=== PATIENT | male | born 1970 | race American Indian/Alaskan Native ===

== ENCOUNTER 2019-12-07 19:17 | Emergency (ER) | payer MEDICAID ==
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
[2019-12-07 20:43] LABS: Bilirubin,Urine NEG (Negative); Blood,Urine NEG (Negative); Color,Urine Yellow (Yellow); Mucus,Urine FEW /HPF; RBC,Urine < 1.0 /HPF (0.0-6.0)
[2019-12-07 20:47] LABS: WBC,Urine < 1.0 /HPF (0.0-6.0)
[2019-12-07 20:51] LABS: Amphetamine Screen,Urine PRESUMPTIVE NEGATIVE; Cannabinoid Screen,Urine PRESUMPTIVE NEGATIVE; Cocaine Screen,Urine PRESUMPTIVE NEGATIVE; Methadone Screen,Urine PRESUMPTIVE NEGATIVE; Opiate Screen,Urine PRESUMPTIVE NEGATIVE
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
[2019-12-07 21:12] LABS: Benzodiazepines Screen,Urine PRESUMPTIVE NEGATIVE
[2019-12-07 21:14] LABS: Hemoglobin 13.3 gm/dl (11.8-15.2); Mean Corpuscular HGB Conc 32 % (32-34); Mean Corpuscular Volume 84 fl (84-94); Platelet Count 245 K/mm3 (140-440); Red Blood Count 4.87 M/mm3 (3.65-5.03); Red Cell Distribution Width 16.3 % (13.2-15.2)
[2019-12-07 21:36] LABS: Alanine Aminotransferase 18 units/L (7-56); Albumin 4.1 g/dL (3.9-5); BUN/Creatinine Ratio 18; Blood Urea Nitrogen 18 mg/dL (9-20); Calcium 9.4 mg/dL (8.4-10.2); Hemolysis Index 16
[2019-12-07 22:14] LABS: RBC Morphology Normal; Total Cells Counted 100
[2019-12-07] MEDS ORDERED: BACITRACIN/POLYMYXIN B OINT 28.35 GM TP ONE (22:55)
[2019-12-07] MEDS ORDERED: ACETAMINOPHEN 325 MG TAB PO ONE (22:56)
[2019-12-07] MEDS: BACITRACIN ZINC OINT 28.4 GM TP ONE (23:37)
[2019-12-08 15:25] LABS: Basophils # (Auto) 0.1 K/mm3 (0.0-0.1); Basophils % (Auto) 0.6 % (0.0-1.8); Eosinophils # (Auto) 0.1 K/mm3 (0.0-0.4); Hemoglobin 12.7 gm/dl (11.8-15.2); Lymphocytes % (Auto) 19.8 % (13.4-35.0); Mean Corpuscular HGB Conc 33 % (32-34); Mean Corpuscular Volume 84 fl (84-94); Monocytes # (Auto) 1.2 K/mm3 (0.0-0.8); Monocytes % (Auto) 11.5 % (0.0-7.3); Platelet Count 210 K/mm3 (140-440); Red Blood Count 4.51 M/mm3 (3.65-5.03); Red Cell Distribution Width 16.2 % (13.2-15.2)
--- NOTE | 2019-12-09 12:54 | Consultation ---
History of Present Illness - Reason for Consult Consult date: 12/09/19 Reason for consult: Psych eval - Chief Complaint Chief complaint: Hearing voices - History of Present Psychiatric Illness The patient is a 49yo single unemployed male with history of Paranoid Schizophrenia on Prolixin D, Depakote and Cogentin. He missed his shot and now presents with auditory hallucinations - voices threatening to kill him which are distressing to patient over the last 6 days. He is willing to resume his medications but does not feel safe being discharged home as he endorses paranoia. Patient eats and sleeps well. Patient denies panic attacks, recurrent nightmares or flashbacks. Patient denies symptoms suggestive of OCD or PTSD. He completely denies suicidal or homicidal thoughts. PAST PSYCHIATRIC HISTORY: Diagnoses: Paranoid Schizophrenia Suicide attempts or Self-harm behavior: Patient denies Prior psychiatric hospitalizations: Yes Substance Abuse history: Patient denies Outpatient treatment: Yes Family Psychiatric History None reported or documented SOCIAL HISTORY Marital Status: Single Living Arrangements: Homeless Employment Status: unemployed Access to guns/weapons: Patient denies Education: Grade 11 History of Abuse: Patient denies Legal History: Patient denies ROS: Constitutional: Negative for weight loss ENT: Negative for stridor Respiratory: Negative for cough or hemoptysis All other systems reviewed and are negative MENTAL STATUS General Appearance and Behavior: age appropriate, good eye contact, cooperative with questioning and polite Cooperation: Cooperative Psychomotor Behavior: within normal limits Mood: OK Affect and affective range: Congruent with stated mood Thought Process: Fluent/Logical and Goal-directed Thought Content: AH and paranoia Speech: Normal volume and Regular rate and rhythm Intellectual Functioning Average Suicidal Ideation: Denies SI Homicidal Ideation: Denies HI Impulse Control: intact Insight and Judgment: normal insight and judgment Memory: Normal Attention: Normal Orientation: alert and oriented RECOMMENDATIONS MEDICATIONS: Will re-start Prolixin D, Depakote and Cogentin. Risks, benefits and alternatives of medications discussed with the patient, questions answered and consent obtained from patient. PSYCHOTHERAPY: Supportive psychotherapy provided MEDICAL: Per primary team MAT REPAIRER: Yes DISPOSITION: Acute inpatient psychiatric hospitalization when medically stable LEGAL STATUS: 1013 FOLLOW-UP: Will follow I have reviewed this treatment plan, including potential risks and benefits of medications, with the patient and/or family members and relevant hospital providers. Please contact with any questions and/or concerns. Medications and Allergies Allergies Allergy/AdvReac Type Severity Reaction Status Date / Time No Known Allergies Allergy Unverified 12/07/19 20:18 Mental Status Exam - Vital signs Last Vital Signs Temp 98.3 F 12/09/19 08:13 Pulse 86 12/09/19 08:13 Resp 18 12/09/19 08:13 BP 147/97 12/09/19 08:13 Pulse Ox 98 12/09/19 08:13 Results Result Diagrams: 12/08/19 15:05 12/07/19 20:41 Abnormal lab results 12/08/19 Range/Units 15:05 RDW 16.2 H (13.2-15.2) % [place] % (Auto) 11.5 H (0.0-7.3) % [place] # 1.2 H (0.0-0.8) K/mm3 All other labs normal. Assessment and Plan - Psychiatric problem (1) Schizophrenia Current Visit: Yes Status: Acute Qualifiers: Schizophrenia type: paranoid schizophrenia Qualified Code(s): F20.0 - Paranoid schizophrenia
[2019-12-09] MEDS: DIVALPROEX DR 250 MG TAB PO SCH ×2 (15:09→21:44)
[2019-12-09] MEDS: BENZTROPINE 0.5 MG TAB PO SCH ×2 (15:09→21:43)
[2019-12-09] MEDS: BACITRACIN ZINC OINT 28.4 GM TP ONE (23:34)
[2019-12-10 07:50] VITALS: BP 155/105
[2019-12-10] MEDS: BENZTROPINE 0.5 MG TAB PO SCH (10:19)
[2019-12-10] MEDS: DIVALPROEX DR 250 MG TAB PO SCH (10:20)
--- NOTE | 2019-12-10 12:24 | Progress Note ---
Subjective - Reason for Consult Consult date: 12/10/19 Reason for consult: Psych follow up - Chief Complaint Chief complaint: No complaints. SUBJECTIVE Patient reviewed this morning. He has no complaints. He feels good and completely denies SI/HI/AVH/Paranoia. He is compliant with his medications and denies side effects. He feels safe being discharged home. He plans to go get his monthly injection as soon as possible and promises to take his medications as prescribed. ROS: Constitutional: Negative for weight loss ENT: Negative for stridor Respiratory: Negative for cough or hemoptysis All other systems reviewed and are negative MENTAL STATUS General Appearance and Behavior: age appropriate, good eye contact, cooperative with questioning and polite Cooperation: Cooperative Psychomotor Behavior: within normal limits Mood: OK Affect and affective range: Congruent with stated mood Thought Process: Fluent/Logical and Goal-directed Thought Content: Normal Speech: Normal volume and Regular rate and rhythm Intellectual Functioning Average Suicidal Ideation: Denies SI Homicidal Ideation: Denies HI Impulse Control: intact Insight and Judgment: normal insight and judgment Memory: Normal Attention: Normal Orientation: alert and oriented DIAGNOSIS Paranoid Schizophrenia. RECOMMENDATIONS MEDICATIONS: Will discharge home on oral Prolixin D, Depakote and Cogentin. Risks, benefits and alternatives of medications discussed with the patient, qu estions answered and consent obtained from patient. PSYCHOTHERAPY: Supportive psychotherapy provided MEDICAL: Per primary teamSAFETY SITTER: May discontinue DISPOSITION: Per primary team. No indication for acute inpatient psychiatric hospitalization at this time. LEGAL STATUS: 1013 rescinded FOLLOW-UP: Will sign off The patient agreed on the treatment plan, understood the risk, benefit, alternative treatment, potential consequence of no treatment, and gave informed consent. Mental Status Exam - Vital signs Last Vital Signs Temp 97.6 F 12/10/19 07:49 Pulse 89 12/10/19 07:49 Resp 18 12/10/19 10:28 BP 155/105 12/10/19 07:49 Pulse Ox 98 12/10/19 10:28 Assessment and Plan - Patient Problems (1) Schizophrenia Current Visit: Yes Status: Acute Qualifiers: Schizophrenia type: paranoid schizophrenia Qualified Code(s): F20.0 - Paranoid schizophrenia
== END 2019-12-10 13:02 ==
LOC: ED 19:17
DX: F20.9 Schizophrenia, unspecified (principal)
CPT/HCPCS: 36415; 80053; 80164; 80307; 80320; 81001; 85007; 85025; G0480

== ENCOUNTER 2021-04-14 15:31 | Inpatient (IN) | payer MEDICAID ==
--- NOTE | 2021-04-15 09:09 | History and Physical Report ---
GP History & Physical - History of Present Illness Date of admission: 04/14/21 Date of Examination: 04/15/21 Reason for Admission: Danger to self Chief Complaint: suicidal ideation History of Present Illness: The patient was seen in the ED. Khris Moody is a 50 year old male with a history of schizophrenia and bipolar who presents to the ED with auditory hallucinations. In my interview with the patient, he is seen responding to internal stimuli. He endorses auditory and visual hallucinations stating " voices saying they are going to kill me and I see people running around." The patient admits having suicidal ideation with no plan. The patient was seen today in the unit eating breakfast, he reports doing well. The patient denies any current suicidal ideation and denies hallucinations. Diagnoses: Schizophrenia and Bipolar Suicide attempts or Self-harm behavior: Yes Prior psychiatric hospitalizations: Multiple Substance Abuse history: Denies Previous psychiatric medications tried: unknown Outpatient treatment: unknown PAST MEDICAL HISTORY: unknown Family Psychiatric History: None reported or documented SOCIAL HISTORY Marital Status: Single Living Arrangements: Homeless Employment Status: unemployed Access to guns/weapons: Denies Education: 11th grade History of Abuse: none reported Legal History: none reported REVIEW OF SYSTEMS Constitutional: Negative for weight loss ENT: Negative for stridor Respiratory: Negative for cough or hemoptysis All other systems reviewed and are negative MENTAL STATUS EXAMINATION General Appearance and Behavior: Age appropriate, good hygiene, wearing appropriate clothes, sleeping, cooperative Cooperation: Participating/engaged Psychomotor Behavior: Tremors Mood: "good" Affect and affective range: congruent with mood Thought Process: Impoverished Thought Content:Not SI Speech: Normal volume, Regular rate and rhythm, Suicidal Ideation: Denies Homicidal Ideation: Denies Hallucinations: Denies Delusions: None elicited Impulse Control: impaired Insight and Judgment: poor insight and judgment, Memory: abnormal Attention: Normal Orientation: Alert, oriented Assessment and Plan (1)Schizophrenia F20.9 Current Visit: Yes Status: Acute Treatment Plan Patient admitted for inpatient psychiatric evaluation, medication adjustment and close monitoring The patient's behavior, mood, sleep and appetite will be closely monitored. Patient enrolled in individual and group therapeutic sessions and encouraged to attend. Patient provided with a safe and structured environment. Patient's physical health needs will be addressed by the Hospitalist. Hospitalist Consulted Labs including CBC, CMP, Lipid profile and Hemoglobin A1C levels ordered for baseline reference Social Assessment will be completed and the Desizing Machine Operator Head End will work with patient and family to ensure a suitable and safe disposition Medication adjustment will be made as clinically indicated Continue Risperidone 1mg po BID. Usual Wellness Adventism/Preservation: - Start Trazodone 50 mg po QHS & 50 mg po QHS PRN between 10 PM & 2 AM for insomnia - Start Melatonin 5 mg po QHS to promote circadian rhythm The patient agreed on the treatment plan, understood the risk, benefit, alternative treatment, potential consequence of no treatment, and gave informed consent. Estimated days: 7 Post hospital care: primary care provider, psychiatric provider Case staffed with Dr. Smith Medications and Allergies Legal Status: Voluntary Medications and Allergies Allergies Allergy/AdvReac Type Severity Reaction Status Date / Time No Known Allergies Allergy Verified 04/14/21 02:26 Home Medications Medication Instructions Recorded Confirmed Last Taken Type Benztropine [Cogentin] 0.5 mg PO BID #30 tablet 12/10/19 04/15/[address] [Depakote Dr] 500 mg PO BID #60 tablet 12/10/19 04/15/21 Unknown Rx fluPHENAZine HCl [Prolixin] 5 mg PO BID #30 tablet 12/10/19 04/15/21 Unknown Rx risperiDONE [RisperDAL] 1 mg PO BID 04/15/21 04/15/21 Unknown History Results - Results Labs/Vitals: Laboratory Last Values POC Glucose 99 mg/dL (70-105) 04/15/21 01:38 Last Vital Signs Temp 98.4 F 04/15/21 02:05 Pulse 72 04/15/21 02:05 Resp 18 04/15/21 02:05 BP 117/81 04/15/21 02:05 Pulse Ox 100 04/15/21 02:05 Physical Examination - Constitutional Vitals: Vital Signs Temp Pulse Resp BP Pulse Ox 98.4 F 72 18 117/81 100 04/15/21 02:05 04/15/21 02:05 04/15/21 02:05 04/15/21 02:05 04/15/21 02:05 Temperature -Last 24 Hours Temperature 98.4 F Temperature 98.4 F Mental Status Exam - Vital signs Last Vital Signs Temp 98.4 F 04/15/21 02:05 Pulse 72 04/15/21 02:05 Resp 18 04/15/21 02:05 BP 117/81 04/15/21 02:05 Pulse Ox 100 04/15/21 02:05 Physician Certification - Certification Statement Physician Certification Statement: This is an acknowledgement statement that KHRIS MOODY is a 50 year old M who requires inpatient psychiatric admission for treatment which could reasonably be expected to improve the patient's condition for Estimated period of time patient will need to remain in the hospital: [ ] Plan for post-hospital care: [ ]
[2021-04-15] MEDS: DIVALPROEX DR 250 MG TAB PO SCH ×2 (09:39→21:14)
[2021-04-15] MEDS: risperiDONE 1 MG TAB PO SCH ×2 (09:40→21:14)
[2021-04-15] MEDS: BENZTROPINE 0.5 MG TAB PO SCH ×2 (09:40→21:14)
--- NOTE | 2021-04-15 15:15 | Consultation ---
History of Present Illness - Reason for Consult Consult date: 04/15/21 Medical management Requesting physician: YANET CARMEN - History of Present Illness 50-year-old male with past medical history significant for schizophrenia, bipolar disorder was admitted by [facility] for auditory hallucinations and suicidal thoughts. Been consulted for medical management. Patient does not have fever, chest pain, shortness of breath. Patient said he has history of hypertension but currently controlled. REVIEW OF SYSTEMS: GENERAL: no weight change, no fatigue, no fever HEAD: no head ache EYES: no blurry vision, no acute visual loss EARS: no hearing loss, no discharge, no earache NOSE: no stuffiness, no sneezing, no discharge MOUTH, THROAT AND NECK: no bleeding gums, no sore throat, no swollen neck CARDIAC: no palpitations, no dyspnea on exertion, no orthopnea, no PND, no edema, no chest pain RESPIRATORY: no shortness of breath, no wheeze, no cough, no sputum, no hemoptysis, no asthma GI: no decreased appetite, no nausea, no vomiting, no dysphagia, no diarrhea, no constipation, no abdominal pain URINARY: No urgency, hematuria, dysuria or frequency. MUSCULOSKELETAL: no muscle weakness, no pain, no joint stiffness NEUROLOGIC: no loss of sensation/numbness, no tingling, no tremors, no weakness/paralysis HEMATOLOGIC: no anemia, no easy bruising SKIN: no rashes ENDOCRINE: no heat/cold intolerance, no polyuria, no polydipsia, no thyroid problems, no diabetes Past History Past Medical History: hypertension Past Surgical History: Other (Arm surgery) Social history: full code. denies: smoking, alcohol abuse, prescription drug abuse, IV drug use Family history: no significant family history Medications and Allergies Allergies Allergy/AdvReac Type Severity Reaction Status Date / Time No Known Allergies Allergy Verified 04/14/21 02:26 Home Medications Medication Instructions Recorded Confirmed Last Taken Type Benztropine [Cogentin] 0.5 mg PO BID #30 tablet 12/10/19 04/15/[address] [Depakote Dr] 500 mg PO BID #60 tablet 12/10/19 04/15/21 Unknown Rx fluPHENAZine HCl [Prolixin] 5 mg PO BID #30 tablet 12/10/19 04/15/21 Unknown Rx risperiDONE [RisperDAL] 1 mg PO BID 04/15/21 04/15/21 Unknown History Active Meds: Active Medications Benztropine Mesylate (Benztropine 0.5 Mg Tab) 0.5 mg PO BID [facility] Last Admin: 04/15/21 09:40 Dose: 0.5 mg Documented by: Divalproex Sodium (Divalproex Dr 250 Mg Tab) 500 mg PO BID [facility] Last Admin: 04/15/21 09:39 Dose: 500 mg Documented by: Risperidone (Risperidone 1 Mg Tab) 1 mg PO BID [facility] Last Admin: 04/15/21 09:40 Dose: 1 mg Documented by: Trazodone HCl (Trazodone 50 Mg Tab) 50 mg PO QHS [facility] Exam - Physical Exam Narrative exam: Not in cardiopulmonary distress. The patient appeared well nourished and normally developed. Vital signs as documented. Head exam is unremarkable. No scleral icterus . Neck is without jugular venous distension, thyromegaly, or carotid bruits. Lungs are clear to auscultation. Cardiac exam reveals regular rate and Rhythm. Abdominal exam reveals normal bowel sounds, nontender, no organomegaly. Extremities are nonedematous and both femoral and pedal pulses are normal. [employer] ARCHITECT: Alert and oriented 3. No focal weakness. - Constitutional Vitals: Temp Pulse Resp BP Pulse Ox 98.0 F 86 16 113/90 98 04/15/21 07:51 04/15/21 07:51 04/15/21 07:51 04/15/21 07:51 04/15/21 07:51 Assessment and Plan Schizophrenia, bipolar disorder, suicidal ideation -Management is per [facility] psych Hypertension -Patient said he has history of hypertension -Currently blood pressure is controlled without any medication -No medication is needed unless his blood pressure is going up Thank you for the consult. Please do not hesitate to call me if you have any questions.
[2021-04-15] MEDS: traZODone 50 MG TAB PO SCH (21:14)
--- NOTE | 2021-04-16 08:03 | Progress Note ---
Subjective Date of service: 04/16/21 Subjective Comment: 04/16/2021: The patient was seen in the activity room eating breakfast, he reports mood as " alright." He states sleep and appetite as good. he denies any current suicidal /homicidal thoughts and denies hallucinations. Per nurse, the patient had a quiet night. No complain. No changes made today. REVIEW OF SYSTEMS Constitutional: Negative for weight loss ENT: Negative for stridor Respiratory: Negative for cough or hemoptysis All other systems reviewed and are negative MENTAL STATUS EXAMINATION General Appearance and Behavior: Age appropriate, good hygiene, wearing appropriate clothes, sleeping, cooperative Cooperation: Participating/engaged Psychomotor Behavior: Tremors Mood: "good" Affect and affective range: congruent with mood Thought Process: Impoverished Thought Content:Not SI Speech: Normal volume, Regular rate and rhythm, Suicidal Ideation: Denies Homicidal Ideation: Denies Hallucinations: Denies Delusions: None elicited Impulse Control: impaired Insight and Judgment: poor insight and judgment, Memory: abnormal Attention: Normal Orientation: Alert, oriented Assessment and Plan (1)Schizophrenia F20.9 Current Visit: Yes Status: Acute Treatment Plan Patient admitted for inpatient psychiatric evaluation, medication adjustment and close monitoring The patient's behavior, mood, sleep and appetite will be closely monitored. Patient enrolled in individual and group therapeutic sessions and encouraged to attend. Patient provided with a safe and structured environment. Patient's physical health needs will be addressed by the Hospitalist. Hospitalist Consulted Labs including CBC, CMP, Lipid profile and Hemoglobin A1C levels ordered for baseline reference Social Assessment will be completed and the Police Clerk will work with patient and family to ensure a suitable and safe disposition Medication adjustment will be made as clinically indicated Continue Risperidone 1mg po BID. Usual Wellness Buddhism/Preservation: - Start Trazodone 50 mg po QHS & 50 mg po QHS PRN between 10 PM & 2 AM for insomnia - Start Melatonin 5 mg po QHS to promote circadian rhythm The patient agreed on the treatment plan, understood the risk, benefit, alternative treatment, potential consequence of no treatment, and gave informed consent. Estimated days: 7 Post hospital care: primary care provider, psychiatric provider Case staffed with Dr. Smith Medications and Allergies Legal Status: Voluntary Medications and Allergies Medications and Allergies Allergies Allergy/AdvReac Type Severity Reaction Status Date / Time No Known Allergies Allergy Verified 04/14/21 02:26 Home Medications Medication Instructions Recorded Confirmed Last Taken Type Benztropine [Cogentin] 0.5 mg PO BID #30 tablet 12/10/19 04/15/[address] [Depakote Dr] 500 mg PO BID #60 tablet 12/10/19 04/15/21 Unknown Rx fluPHENAZine HCl [Prolixin] 5 mg PO BID #30 tablet 12/10/19 04/15/21 Unknown Rx risperiDONE [RisperDAL] 1 mg PO BID 04/15/21 04/15/21 Unknown History Active Meds: Active Medications Benztropine Mesylate (Benztropine 0.5 Mg Tab) 0.5 mg PO BID [facility] Last Admin: 04/15/21 21:14 Dose: 0.5 mg Documented by: Divalproex Sodium (Divalproex Dr 250 Mg Tab) 500 mg PO BID [facility] Last Admin: 04/15/21 21:14 Dose: 500 mg Documented by: Risperidone (Risperidone 1 Mg Tab) 1 mg PO BID [facility] Last Admin: 04/15/21 21:14 Dose: 1 mg Documented by: Trazodone HCl (Trazodone 50 Mg Tab) 50 mg PO QHS [facility] Last Admin: 04/15/21 21:14 Dose: 50 mg Documented by: Results - Results Labs/Vitals: Laboratory Last Values POC Glucose 99 mg/dL (70-105) 04/15/21 01:38 Last Vital Signs Temp 99.0 F 04/15/21 22:00 Pulse 77 04/15/21 22:00 Resp 18 04/15/21 22:00 BP 123/68 04/15/21 22:00 Pulse Ox 96 04/15/21 22:00
[2021-04-16] MEDS: BENZTROPINE 0.5 MG TAB PO SCH ×2 (09:08→21:17)
[2021-04-16] MEDS: DIVALPROEX DR 250 MG TAB PO SCH ×2 (09:08→21:17)
[2021-04-16] MEDS: risperiDONE 1 MG TAB PO SCH ×2 (09:08→21:18)
[2021-04-16 10:56] LABS: Basophils % (Auto) 0.4 % (0.0-1.8); Eosinophils # (Auto) 0.1 K/mm3 (0.0-0.4); Eosinophils % (Auto) 1.8 % (0.0-4.3); Hematocrit 37.3 % (35.5-45.6); Hemoglobin 12.4 gm/dl (11.8-15.2); Lymphocytes # (Auto) 1.6 K/mm3 (1.2-5.4); Lymphocytes % (Auto) 20.4 % (13.4-35.0); Mean Corpuscular HGB Conc 33 % (32-34); Mean Corpuscular Volume 88 fl (84-94); Monocytes # (Auto) 0.6 K/mm3 (0.0-0.8); Monocytes % (Auto) 7.5 % (0.0-7.3); Platelet Count 218 K/mm3 (140-440); Red Blood Count 4.22 M/mm3 (3.65-5.03)
[2021-04-16 10:59] LABS: Alanine Aminotransferase 7 units/L (7-56); Albumin 3.8 g/dL (3.9-5); BUN/Creatinine Ratio 13; Blood Urea Nitrogen 10 mg/dL (9-20); Calcium 9.4 mg/dL (8.4-10.2); Chol/HDL Ratio 3.32 %; HDL Cholesterol 40 mg/dL (40-59); Hemolysis Index 8; LDL Cholesterol,Direct 96 mg/dL (50-130)
--- NOTE | 2021-04-16 11:03 | XRay Report ---
CHEST 1 VIEW 04/16/2021 9:46 AM INDICATION / CLINICAL INFORMATION: tb check for Placement. COMPARISON: None available. FINDINGS: SUPPORT DEVICES: None. HEART / MEDIASTINUM: No significant abnormality. LUNGS / PLEURA: No significant pulmonary or pleural abnormality. No pneumothorax. ADDITIONAL FINDINGS: No significant additional findings. IMPRESSION: 1. No acute findings. Signer Name: Christopher Morales MD Signed: 04/16/2021 10:58 AM Workstation Name: [id number]
[2021-04-16 16:33] LABS: Hepatitis B Surface Antigen Non-Reactive (Negative); Hepatitis C Virus Antibody Non-Reactive (NonReactive)
[2021-04-16] MEDS: traZODone 50 MG TAB PO SCH (21:18)
--- NOTE | 2021-04-17 08:55 | Progress Note ---
Subjective Date of service: 04/17/21 Subjective Comment: 04/16/2021: The patient was seen in the activity room eating breakfast, he reports mood as " alright." He states sleep and appetite as good. he denies any current suicidal /homicidal thoughts and denies hallucinations. Per nurse, the patient had a quiet night. No complain. No changes made today. 04/17/2021: The patient seen in the activity room awaiting breakfast. The patient presents with inappropriate laughter and responding to internal stimuli when asked he states " I just talk to myself." He reports doing well, states mood as "good" he denies any current suicidal/homicidal ideation and he denies hallucinations. Per nurse, "Last evening the patient stayed in the activity room. He held himself and rocked back and forth. He was observed talking to himself. He could stop talking to self and have a new conversation with staff. He denies si/hi/vh. His appetite is good and he is medication compliant. Overnight the patient rested quietly. He slept 8 hours." Changes Risperidone to 3mg po QHS and to start Invega Sustenna 234mg IM today. REVIEW OF SYSTEMS Constitutional: Negative for weight loss ENT: Negative for stridor Respiratory: Negative for cough or hemoptysis All other systems reviewed and are negative MENTAL STATUS EXAMINATION General Appearance and Behavior: Age appropriate, good hygiene, wearing appropriate clothes, sleeping, cooperative Cooperation: Participating/engaged Psychomotor Behavior: Tremors Mood: "good" Affect and affective range: congruent with mood Thought Process: Impoverished Thought Content:Not SI Speech: Normal volume, Regular rate and rhythm, Suicidal Ideation: Denies Homicidal Ideation: Denies Hallucinations: Denies Delusions: None elicited Impulse Control: impaired Insight and Judgment: poor insight and judgment, Memory: abnormal Attention: Normal Orientation: Alert, oriented Assessment and Plan (1)Schizophrenia F20.9 Current Visit: Yes Status: Acute Treatment Plan Patient admitted for inpatient psychiatric evaluation, medication adjustment and close monitoring The patient's behavior, mood, sleep and appetite will be closely monitored. Patient enrolled in individual and group therapeutic sessions and encouraged to attend. Patient provided with a safe and structured environment. Patient's physical health needs will be addressed by the Hospitalist. Hospitalist Consulted Labs including CBC, CMP, Lipid profile and Hemoglobin A1C levels ordered for baseline reference Social Assessment will be completed and the Claims Collector will work with patient and family to ensure a suitable and safe disposition Medication adjustment will be made as clinically indicated Start Risperidone 3mg po QHS. Start Invega Sustenna 234mg IM today- Usual Wellness Taoism/Preservation: - Start Trazodone 50 mg po QHS & 50 mg po QHS PRN between 10 PM & 2 AM for insomnia - Start Melatonin 5 mg po QHS to promote circadian rhythm The patient agreed on the treatment plan, understood the risk, benefit, alternative treatment, potential consequence of no treatment, and gave informed consent. Estimated days: 7 Post hospital care: primary care provider, psychiatric provider Case staffed with Dr. Smith Medications and Allergies Legal Status: Voluntary Medications and Allergies Medications and Allergies Medications and Allergies Allergies Allergy/AdvReac Type Severity Reaction Status Date / Time No Known Allergies Allergy Verified 04/14/21 02:26 Home Medications Medication Instructions Recorded Confirmed Last Taken Type Benztropine [Cogentin] 0.5 mg PO BID #30 tablet 12/10/19 04/15/[address] [Luis E Yun] 500 mg PO BID #60 tablet 12/10/19 04/15/21 Unknown Rx fluPHENAZine HCl [Prolixin] 5 mg PO BID #30 tablet 12/10/19 04/15/21 Unknown Rx risperiDONE [RisperDAL] 1 mg PO BID 04/15/21 04/15/21 Unknown History Active Meds: Active Medications Benztropine Mesylate (Benztropine 0.5 Mg Tab) 0.5 mg PO BID [facility] Last Admin: 04/16/21 21:17 Dose: 0.5 mg Documented by: Divalproex Sodium (Divalproex Dr 250 Mg Tab) 500 mg PO BID [facility] Last Admin: 04/16/21 21:17 Dose: 500 mg Documented by: Risperidone (Risperidone 1 Mg Tab) 1 mg PO BID [facility] Last Admin: 04/16/21 21:18 Dose: 1 mg Documented by: Trazodone HCl (Trazodone 50 Mg Tab) 50 mg PO QHS [facility] Last Admin: 04/16/21 21:18 Dose: 50 mg Documented by: Results - Results Labs/Vitals: Laboratory Last Values WBC 7.9 K/mm3 (4.5-11.0) 04/16/21 10:10 RBC 4.22 M/mm3 (3.65-5.03) 04/16/21 10:10 Hgb 12.4 gm/dl (11.8-15.2) 04/16/21 10:10 Hct 37.3 % (35.5-45.6) 04/16/21 10:10 MCV 88 fl (84-94) 04/16/21 10:10 MCH 29 pg (28-32) 04/16/21 10:10 MCHC 33 % (32-34) 04/16/21 10:10 RDW 15.0 % (13.2-15.2) 04/16/21 10:10 Plt Count 218 K/mm3 (140-440) 04/16/21 10:10 Lymph % (Auto) 20.4 % (13.4-35.0) 04/16/21 10:10 [place] % (Auto) 7.5 % (0.0-7.3) H 04/16/21 10:10 Eos % (Auto) 1.8 % (0.0-4.3) 04/16/21 10:10 Baso % (Auto) 0.4 % (0.0-1.8) 04/16/21 10:10 Lymph # (Auto) 1.6 K/mm3 (1.2-5.4) 04/16/21 10:10 [place] # (Auto) 0.6 K/mm3 (0.0-0.8) 04/16/21 10:10 Eos # (Auto) 0.1 K/mm3 (0.0-0.4) 04/16/21 10:10 Baso # (Auto) 0.0 K/mm3 (0.0-0.1) 04/16/21 10:10 Seg Neutrophils % 69.9 % (40.0-70.0) 04/16/21 10:10 Seg Neutrophils # 5.5 K/mm3 (1.8-7.7) 04/16/21 10:10 Sodium 139 mmol/L (137-145) 04/16/21 10:10 Potassium 4.3 mmol/L (3.6-5.0) 04/16/21 10:10 Chloride 104.2 mmol/L (98-107) 04/16/21 10:10 Carbon Dioxide 26 mmol/L (22-30) 04/16/21 10:10 Anion Gap 13 mmol/L 04/16/21 10:10 BUN 10 mg/dL (9-20) 04/16/21 10:10 Creatinine 0.8 mg/dL (0.8-1.3) 04/16/21 10:10 Estimated GFR > 60 ml/min 04/16/21 10:10 BUN/Creatinine Ratio 13 % 04/16/21 10:10 Glucose 84 mg/dL (75-100) 04/16/21 10:10 POC Glucose 99 mg/dL (70-105) 04/15/21 01:38 Calcium 9.4 mg/dL (8.4-10.2) 04/16/21 10:10 Total Bilirubin 0.30 mg/dL (0.1-1.2) 04/16/21 10:10 AST 11 units/L (5-40) 04/16/21 10:10 ALT 7 units/L (7-56) 04/16/21 10:10 Alkaline Phosphatase 90 units/L (35-129) 04/16/21 10:10 Total Protein 7.1 g/dL (6.3-8.2) 04/16/21 10:10 Albumin 3.8 g/dL (3.9-5) L 04/16/21 10:10 Albumin/Globulin Ratio 1.2 % 04/16/21 10:10 Triglycerides 88 mg/dL (2-149) 04/16/21 10:10 Cholesterol 133 mg/dL (50-199) 04/16/21 10:10 LDL Cholesterol Direct 96 mg/dL (50-130) 04/16/21 10:10 HDL Cholesterol 40 mg/dL (40-59) 04/16/21 10:10 Cholesterol/HDL Ratio 3.32 % 04/16/21 10:10 TSH 0.844 mlU/mL (0.270-4.200) 04/16/21 10:10 Hepatitis A IgM Ab Non-reactive (NonReactive) 04/16/21 10:10 Hep Bs Antigen Non-reactive (Negative) 04/16/21 10:10 Hep B Core IgM Ab Non-reactive (NonReactive) 04/16/21 10:10 Hepatitis C Antibody Non-reactive (NonReactive) 04/16/21 10:10 Last Vital Signs Temp 97.9 F 04/17/21 07:35 Pulse 95 H 04/17/21 07:35 Resp 18 04/17/21 07:35 BP 135/84 04/17/21 07:35 Pulse Ox 100 04/17/21 07:35
[2021-04-17] MEDS: BENZTROPINE 0.5 MG TAB PO SCH ×2 (09:06→21:38)
[2021-04-17] MEDS: DIVALPROEX DR 250 MG TAB PO SCH ×2 (09:06→21:38)
[2021-04-17] MEDS ORDERED: PALIPERIDONE PALMITATE 234 MG/1.5 ML SYRINGE IM NR (10:00)
[2021-04-17] MEDS: traZODone 50 MG TAB PO SCH (21:38)
[2021-04-17] MEDS: risperiDONE 3 MG TAB PO SCH (21:38)
--- NOTE | 2021-04-18 09:34 | Discharge Summary ---
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 The patient's mood, cognition, behavior, moral support are improved and stabilized. St the time of discharge, the patient had no endangering behavior and no debilitating adverse effects. The patient agreed on potential consequences of no treatment and gave informed consent. 04/16/2021: The patient was seen in the activity room eating breakfast, he reports mood as " alright." He states sleep and appetite as good. he denies any current suicidal /homicidal thoughts and denies hallucinations. Per nurse, the patient had a quiet night. No complain. No changes made today. 04/17/2021: The patient seen in the activity room awaiting breakfast. The patient presents with inappropriate laughter and responding to internal stimuli when asked he states " I just talk to myself." He reports doing well, states mood as "good" he denies any current suicidal/homicidal ideation and he denies hallucinations. Per nurse, "Last evening the patient stayed in the activity room. He held himself and rocked back and forth. He was observed talking to himself. He could stop talking to self and have a new conversation with staff. He denies si/hi/vh. His appetite is good and he is medication compliant. Overnight the patient rested quietly. He slept 8 hours." Changes Risperidone to 3mg po QHS and to start Invega Sustenna 234mg IM today. Disposition: DC-01 TO HOME OR SELFCARE Time spent for discharge: 39 Allergies/Adverse Reactions: Allergies No Known Allergies Allergy (Verified 04/14/21 02:26) Vital Signs: Last Vital Signs Temp 97.8 F 04/18/21 09:03 Pulse 85 04/18/21 09:03 Resp 18 04/18/21 09:03 BP 136/89 04/18/21 09:03 Pulse Ox 100 04/18/21 09:03 Last Lab: Laboratory Last Values WBC 7.9 K/mm3 (4.5-11.0) 04/16/21 10:10 RBC 4.22 M/mm3 (3.65-5.03) 04/16/21 10:10 Hgb 12.4 gm/dl (11.8-15.2) 04/16/21 10:10 Hct 37.3 % (35.5-45.6) 04/16/21 10:10 MCV 88 fl (84-94) 04/16/21 10:10 MCH 29 pg (28-32) 04/16/21 10:10 MCHC 33 % (32-34) 04/16/21 10:10 RDW 15.0 % (13.2-15.2) 04/16/21 10:10 Plt Count 218 K/mm3 (140-440) 04/16/21 10:10 Lymph % (Auto) 20.4 % (13.4-35.0) 04/16/21 10:10 [place] % (Auto) 7.5 % (0.0-7.3) H 04/16/21 10:10 Eos % (Auto) 1.8 % (0.0-4.3) 04/16/21 10:10 Baso % (Auto) 0.4 % (0.0-1.8) 04/16/21 10:10 Lymph # (Auto) 1.6 K/mm3 (1.2-5.4) 04/16/21 10:10 [place] # (Auto) 0.6 K/mm3 (0.0-0.8) 04/16/21 10:10 Eos # (Auto) 0.1 K/mm3 (0.0-0.4) 04/16/21 10:10 Baso # (Auto) 0.0 K/mm3 (0.0-0.1) 04/16/21 10:10 Seg Neutrophils % 69.9 % (40.0-70.0) 04/16/21 10:10 Seg Neutrophils # 5.5 K/mm3 (1.8-7.7) 04/16/21 10:10 Sodium 139 mmol/L (137-145) 04/16/21 10:10 Potassium 4.3 mmol/L (3.6-5.0) 04/16/21 10:10 Chloride 104.2 mmol/L (98-107) 04/16/21 10:10 Carbon Dioxide 26 mmol/L (22-30) 04/16/21 10:10 Anion Gap 13 mmol/L 04/16/21 10:10 BUN 10 mg/dL (9-20) 04/16/21 10:10 Creatinine 0.8 mg/dL (0.8-1.3) 04/16/21 10:10 Estimated GFR > 60 ml/min 04/16/21 10:10 BUN/Creatinine Ratio 13 % 04/16/21 10:10 Glucose 84 mg/dL (75-100) 04/16/21 10:10 POC Glucose 99 mg/dL (70-105) 04/15/21 01:38 Calcium 9.4 mg/dL (8.4-10.2) 04/16/21 10:10 Total Bilirubin 0.30 mg/dL (0.1-1.2) 04/16/21 10:10 AST 11 units/L (5-40) 04/16/21 10:10 ALT 7 units/L (7-56) 04/16/21 10:10 Alkaline Phosphatase 90 units/L (35-129) 04/16/21 10:10 Total Protein 7.1 g/dL (6.3-8.2) 04/16/21 10:10 Albumin 3.8 g/dL (3.9-5) L 04/16/21 10:10 Albumin/Globulin Ratio 1.2 % 04/16/21 10:10 Triglycerides 88 mg/dL (2-149) 04/16/21 10:10 Cholesterol 133 mg/dL (50-199) 04/16/21 10:10 LDL Cholesterol Direct 96 mg/dL (50-130) 04/16/21 10:10 HDL Cholesterol 40 mg/dL (40-59) 04/16/21 10:10 Cholesterol/HDL Ratio 3.32 % 04/16/21 10:10 TSH 0.844 mlU/mL (0.270-4.200) 04/16/21 10:10 Hepatitis A IgM Ab Non-reactive (NonReactive) 04/16/21 10:10 Hep Bs Antigen Non-reactive (Negative) 04/16/21 10:10 Hep B Core IgM Ab Non-reactive (NonReactive) 04/16/21 10:10 Hepatitis C Antibody Non-reactive (NonReactive) 04/16/21 10:10 Core Measure Documentation - Palliative Care Palliative Care/ Comfort Measures: Not Applicable - Core Measures Any of the following diagnoses?: none Exam - Constitutional Vitals: Temp Pulse Resp BP Pulse Ox 97.8 F 85 18 136/89 100 04/18/21 09:03 04/18/21 09:03 04/18/21 09:03 04/18/21 09:03 04/18/21 09:03 General appearance: Present: no acute distress - EENT Eyes: Present: EOM intact ENT: hearing intact, clear oral mucosa - Neck Neck: Present: normal ROM - Respiratory Respiratory effort: normal Plan Activity: advance as tolerated Weight Bearing Status: Weight Bear as Tolerated Care Plan Goals: Maintain good and stable mental health Plan of Treatment: The patient should be compliant with medications, not to use drugs, and not to drink alcohol. The patient understands that if suicidal ideas, homicidal ideas or any endangering feeling arise, the patient should seek assistance including, but not limited to crisis hotline, and emergency room. Assessment: Schizophrenia Follow up with: PRIMARY CARE, [Primary Care Provider] - 7 Days Prescriptions: traZODone [Desyrel] 50 mg PO QHS #30 tablet risperiDONE [RisperDAL] 3 mg PO QHS #30 tablet
[2021-04-18] MEDS: DIVALPROEX DR 250 MG TAB PO SCH ×2 (09:46→21:29)
[2021-04-18] MEDS: BENZTROPINE 0.5 MG TAB PO SCH ×2 (09:46→21:30)
[2021-04-18] MEDS: traZODone 50 MG TAB PO SCH (21:29)
[2021-04-18] MEDS: risperiDONE 3 MG TAB PO SCH (21:30)
[2021-04-19] MEDS: BENZTROPINE 0.5 MG TAB PO SCH ×2 (09:25→21:39)
[2021-04-19] MEDS: DIVALPROEX DR 250 MG TAB PO SCH ×2 (09:25→21:39)
--- NOTE | 2021-04-19 09:43 | Discharge Summary ---
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 The patient's mood, cognition, behavior, moral support are improved and stabilized. St the time of discharge, the patient had no endangering behavior and no debilitating adverse effects. The patient agreed on potential consequences of no treatment and gave informed consent. 04/16/2021: The patient was seen in the activity room eating breakfast, he r eports mood as " alright." He states sleep and appetite as good. he denies any current suicidal /homicidal thoughts and denies hallucinations. Per nurse, the patient had a quiet night. No complain. No changes made today. 04/17/2021: The patient seen in the activity room awaiting breakfast. The patient presents with inappropriate laughter and responding to internal stimuli when asked he states " I just talk to myself." He reports doing well, states mood as "good" he denies any current suicidal/homicidal ideation and he denies hallucinations. Per nurse, "Last evening the patient stayed in the activity room. He held himself and rocked back and forth. He was observed talking to himself. He could stop talking to self and have a new conversation with staff. He denies si/hi/vh. His appetite is good and he is medication compliant. Overnight the patient rested quietly. He slept 8 hours." Changes Risperidone to 3mg po QHS and to start Invega Sustenna 234mg IM today. Disposition: DC- TO HOME OR SELFCARE Time spent for discharge: 38 Allergies/Adverse Reactions: Allergies No Known Allergies Allergy (Verified 04/14/21 02:26) Vital Signs: Last Vital Signs Temp 97.5 F L 04/19/21 07: Pulse 81 04/19/21 07:21 Resp 18 04/19/21 07:21 BP 125/83 04/19/21 07:21 Pulse Ox 95 04/19/21 07:21 Last Lab: Laboratory Last Values WBC 7.9 K/mm3 (4.5-11.0) 04/16/21 10:10 RBC 4.22 M/mm3 (3.65-5.03) 04/16/21 10:10 Hgb 12.4 gm/dl (11.8-15.2) 04/16/21 10:10 Hct 37.3 % (35.5-45.6) 04/16/21 10:10 MCV 88 fl (84-94) 04/16/21 10:10 MCH 29 pg (28-32) 04/16/21 10:10 MCHC 33 % (32-34) 04/16/21 10:10 RDW 15.0 % (13.2-15.2) 04/16/21 10:10 Plt Count 218 K/mm3 (140-440) 04/16/21 10:10 Lymph % (Auto) 20.4 % (13.4-35.0) 04/16/21 10:10 [place] % (Auto) 7.5 % (0.0-7.3) H 04/16/21 10:10 Eos % (Auto) 1.8 % (0.0-4.3) 04/16/21 10:10 Baso % (Auto) 0.4 % (0.0-1.8) 04/16/21 10:10 Lymph # (Auto) 1.6 K/mm3 (1.2-5.4) 04/16/21 10:10 [place] # (Auto) 0.6 K/mm3 (0.0-0.8) 04/16/21 10:10 Eos # (Auto) 0.1 K/mm3 (0.0-0.4) 04/16/21 10:10 Baso # (Auto) 0.0 K/mm3 (0.0-0.1) 04/16/21 10:10 Seg Neutrophils % 69.9 % (40.0-70.0) 04/16/21 10:10 Seg Neutrophils # 5.5 K/mm3 (1.8-7.7) 04/16/21 10:10 Sodium 139 mmol/L (137-145) 04/16/21 10:10 Potassium 4.3 mmol/L (3.6-5.0) 04/16/21 10:10 Chloride 104.2 mmol/L (98-107) 04/16/21 10:10 Carbon Dioxide 26 mmol/L (22-30) 04/16/21 10:10 Anion Gap 13 mmol/L 04/16/21 10:10 BUN 10 mg/dL (9-20) 04/16/21 10:10 Creatinine 0.8 mg/dL (0.8-1.3) 04/16/21 10:10 Estimated GFR > 60 ml/min 04/16/21 10:10 BUN/Creatinine Ratio 13 % 04/16/21 10:10 Glucose 84 mg/dL (75-100) 04/16/21 10:10 POC Glucose 99 mg/dL (70-105) 04/15/21 01:38 Calcium 9.4 mg/dL (8.4-10.2) 04/16/21 10:10 Total Bilirubin 0.30 mg/dL (0.1-1.2) 04/16/21 10:10 AST 11 units/L (5-40) 04/16/21 10:10 ALT 7 units/L (7-56) 04/16/21 10:10 Alkaline Phosphatase 90 units/L (35-129) 04/16/21 10:10 Total Protein 7.1 g/dL (6.3-8.2) 04/16/21 10:10 Albumin 3.8 g/dL (3.9-5) L 04/16/21 10:10 Albumin/Globulin Ratio 1.2 % 04/16/21 10:10 Triglycerides 88 mg/dL (2-149) 04/16/21 10:10 Cholesterol 133 mg/dL (50-199) 04/16/21 10:10 LDL Cholesterol Direct 96 mg/dL (50-130) 04/16/21 10:10 HDL Cholesterol 40 mg/dL (40-59) 04/16/21 10:10 Cholesterol/HDL Ratio 3.32 % 04/16/21 10:10 TSH 0.844 mlU/mL (0.270-4.200) 04/16/21 10:10 Hepatitis A IgM Ab Non-reactive (NonReactive) 04/16/21 10:10 Hep Bs Antigen Non-reactive (Negative) 04/16/21 10:10 Hep B Core IgM Ab Non-reactive (NonReactive) 04/16/21 10:10 Hepatitis C Antibody Non-reactive (NonReactive) 04/16/21 10:10 Core Measure Documentation - Palliative Care Palliative Care/ Comfort Measures: Not Applicable - Core Measures Any of the following diagnoses?: none Exam - Constitutional Vitals: Temp Pulse Resp BP Pulse Ox 97.5 F L 81 18 125/83 95 04/19/21 07:21 04/19/21 07:21 04/19/21 07:21 04/19/21 07:21 04/19/21 07:21 General appearance: Present: no acute distress - EENT Eyes: Present: PERRL, EOM intact ENT: hearing intact, clear oral mucosa - Neck Neck: Present: normal ROM - Respiratory Respiratory effort: normal Plan Activity: advance as tolerated Weight Bearing Status: Weight Bear as Tolerated Care Plan Goals: Maintain good and stable mental health Plan of Treatment: The patient should be compliant with medications, not to use drugs, and not to drink alcohol. The patient understands that if suicidal ideas, homicidal ideas or any endangering feeling arise, the patient should seek assistance including, but not limited to crisis hotline, and emergency room. Assessment: Schizophrenia Follow up with: PRIMARY CARE, [Primary Care Provider] - 7 Days Prescriptions: traZODone [Desyrel] 50 mg PO QHS #30 tablet risperiDONE [RisperDAL] 3 mg PO QHS #30 tablet
--- NOTE | 2021-04-19 12:12 | Progress Note ---
Hospitalist Physical - Constitutional Vitals: Temp Pulse Resp BP Pulse Ox 97.5 F L 81 18 125/83 95 04/19/21 07:21 04/19/21 07:21 04/19/21 07:21 04/19/21 07:21 04/19/21 07:21 General appearance: Present: no acute distress Results - Labs CBC & Chem 7: 04/16/21 10:10 04/16/21 10:10 Labs: Laboratory Last Values WBC 7.9 K/mm3 (4.5-11.0) 04/16/21 10:10 RBC 4.22 M/mm3 (3.65-5.03) 04/16/21 10:10 Hgb 12.4 gm/dl (11.8-15.2) 04/16/21 10:10 Hct 37.3 % (35.5-45.6) 04/16/21 10:10 MCV 88 fl (84-94) 04/16/21 10:10 MCH 29 pg (28-32) 04/16/21 10:10 MCHC 33 % (32-34) 04/16/21 10:10 RDW 15.0 % (13.2-15.2) 04/16/21 10:10 Plt Count 218 K/mm3 (140-440) 04/16/21 10:10 Lymph % (Auto) 20.4 % (13.4-35.0) 04/16/21 10:10 [place] % (Auto) 7.5 % (0.0-7.3) H 04/16/21 10:10 Eos % (Auto) 1.8 % (0.0-4.3) 04/16/21 10:10 Baso % (Auto) 0.4 % (0.0-1.8) 04/16/21 10:10 Lymph # (Auto) 1.6 K/mm3 (1.2-5.4) 04/16/21 10:10 [place] # (Auto) 0.6 K/mm3 (0.0-0.8) 04/16/21 10:10 Eos # (Auto) 0.1 K/mm3 (0.0-0.4) 04/16/21 10:10 Baso # (Auto) 0.0 K/mm3 (0.0-0.1) 04/16/21 10:10 Seg Neutrophils % 69.9 % (40.0-70.0) 04/16/21 10:10 Seg Neutrophils # 5.5 K/mm3 (1.8-7.7) 04/16/21 10:10 Sodium 139 mmol/L (137-145) 04/16/21 10:10 Potassium 4.3 mmol/L (3.6-5.0) 04/16/21 10:10 Chloride 104.2 mmol/L (98-107) 04/16/21 10:10 Carbon Dioxide 26 mmol/L (22-30) 04/16/21 10:10 Anion Gap 13 mmol/L 04/16/21 10:10 BUN 10 mg/dL (9-20) 04/16/21 10:10 Creatinine 0.8 mg/dL (0.8-1.3) 04/16/21 10:10 Estimated GFR > 60 ml/min 04/16/21 10:10 BUN/Creatinine Ratio 13 % 04/16/21 10:10 Glucose 84 mg/dL (75-100) 04/16/21 10:10 POC Glucose 99 mg/dL (70-105) 04/15/21 01:38 Calcium 9.4 mg/dL (8.4-10.2) 04/16/21 10:10 Total Bilirubin 0.30 mg/dL (0.1-1.2) 04/16/21 10:10 AST 11 units/L (5-40) 04/16/21 10:10 ALT 7 units/L (7-56) 04/16/21 10:10 Alkaline Phosphatase 90 units/L (35-129) 04/16/21 10:10 Total Protein 7.1 g/dL (6.3-8.2) 04/16/21 10:10 Albumin 3.8 g/dL (3.9-5) L 04/16/21 10:10 Albumin/Globulin Ratio 1.2 % 04/16/21 10:10 Triglycerides 88 mg/dL (2-149) 04/16/21 10:10 Cholesterol 133 mg/dL (50-199) 04/16/21 10:10 LDL Cholesterol Direct 96 mg/dL (50-130) 04/16/21 10:10 HDL Cholesterol 40 mg/dL (40-59) 04/16/21 10:10 Cholesterol/HDL Ratio 3.32 % 04/16/21 10:10 TSH 0.844 mlU/mL (0.270-4.200) 04/16/21 10:10 Hepatitis A IgM Ab Non-reactive (NonReactive) 04/16/21 10:10 Hep Bs Antigen Non-reactive (Negative) 04/16/21 10:10 Hep B Core IgM Ab Non-reactive (NonReactive) 04/16/21 10:10 Hepatitis C Antibody Non-reactive (NonReactive) 04/16/21 10:10 [place]/IV: Voiding Method Toilet Active Medications - Current Medications Current Medications: Generic Name Dose Route Start Last Admin Trade Name Freq PRN Reason Stop Dose Admin Benztropine Mesylate 0.5 mg 04/15/21 10:00 04/19/21 09:25 Benztropine 0.5 Mg Tab PO 0.5 mg BID LALI Administration Divalproex Sodium 500 mg 04/15/21 10:00 04/19/21 09:[address] 250 Mg Tab PO 500 mg BID LALI Administration Risperidone 3 mg 04/17/21 22:00 04/18/21 21:30 Risperidone 3 Mg Tab PO 3 mg QHS LALI Administration Trazodone HCl 50 mg 04/15/21 22:00 04/18/21 21:29 Trazodone 50 Mg Tab PO 50 mg QHS LALI Administration
[2021-04-19] MEDS: traZODone 50 MG TAB PO SCH (21:39)
[2021-04-19] MEDS: risperiDONE 3 MG TAB PO SCH (21:39)
[2021-04-20] MEDS: DIVALPROEX DR 250 MG TAB PO SCH ×2 (09:12→21:34)
[2021-04-20] MEDS: BENZTROPINE 0.5 MG TAB PO SCH ×2 (09:12→21:34)
--- NOTE | 2021-04-20 10:21 | Discharge Summary ---
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 The patient's mood, cognition, behavior, moral support are improved and stabilized. St the time of discharge, the patient had no endangering behavior and no debilitating adverse effects. The patient agreed on potential consequences of no treatment and gave informed consent. 04/16/2021: The patient was seen in the activity room eating breakfast, he r eports mood as " alright." He states sleep and appetite as good. he denies any current suicidal /homicidal thoughts and denies hallucinations. Per nurse, the patient had a quiet night. No complain. No changes made today. 04/17/2021: The patient seen in the activity room awaiting breakfast. The patient presents with inappropriate laughter and responding to internal stimuli when asked he states " I just talk to myself." He reports doing well, states mood as "good" he denies any current suicidal/homicidal ideation and he denies hallucinations. Per nurse, "Last evening the patient stayed in the activity room. He held himself and rocked back and forth. He was observed talking to himself. He could stop talking to self and have a new conversation with staff. He denies si/hi/vh. His appetite is good and he is medication compliant. Overnight the patient rested quietly. He slept 8 hours." Changes Risperidone to 3mg po QHS and to start Invega Sustenna 234mg IM today. Disposition: - TO HOME OR SELFCARE Time spent for discharge: 35 Allergies/Adverse Reactions: Allergies No Known Allergies Allergy (Verified 04/14/21 02:26) Vital Signs: Last Vital Signs Temp 97.6 F 04/20/21 07:14 Pulse 91 H 04/20/21 07:14 Resp 18 04/20/21 07:14 BP 108/81 04/20/21 07:14 Pulse Ox 94 04/20/21 07:14 Last Lab: Laboratory Last Values WBC 7.9 K/mm3 (4.5-11.0) 04/16/21 10:10 RBC 4.22 M/mm3 (3.65-5.03) 04/16/21 10:10 Hgb 12.4 gm/dl (11.8-15.2) 04/16/21 10:10 Hct 37.3 % (35.5-45.6) 04/16/21 10:10 MCV 88 fl (84-94) 04/16/21 10:10 MCH 29 pg (28-32) 04/16/21 10:10 MCHC 33 % (32-34) 04/16/21 10:10 RDW 15.0 % (13.2-15.2) 04/16/21 10:10 Plt Count 218 K/mm3 (140-440) 04/16/21 10:10 Lymph % (Auto) 20.4 % (13.4-35.0) 04/16/21 10:10 [place] % (Auto) 7.5 % (0.0-7.3) H 04/16/21 10:10 Eos % (Auto) 1.8 % (0.0-4.3) 04/16/21 10:10 Baso % (Auto) 0.4 % (0.0-1.8) 04/16/21 10:10 Lymph # (Auto) 1.6 K/mm3 (1.2-5.4) 04/16/21 10:10 [place] # (Auto) 0.6 K/mm3 (0.0-0.8) 04/16/21 10:10 Eos # (Auto) 0.1 K/mm3 (0.0-0.4) 04/16/21 10:10 Baso # (Auto) 0.0 K/mm3 (0.0-0.1) 04/16/21 10:10 Seg Neutrophils % 69.9 % (40.0-70.0) 04/16/21 10:10 Seg Neutrophils # 5.5 K/mm3 (1.8-7.7) 04/16/21 10:10 Sodium 139 mmol/L (137-145) 04/16/21 10:10 Potassium 4.3 mmol/L (3.6-5.0) 04/16/21 10:10 Chloride 104.2 mmol/L (98-107) 04/16/21 10:10 Carbon Dioxide 26 mmol/L (22-30) 04/16/21 10:10 Anion Gap 13 mmol/L 04/16/21 10:10 BUN 10 mg/dL (9-20) 04/16/21 10:10 Creatinine 0.8 mg/dL (0.8-1.3) 04/16/21 10:10 Estimated GFR > 60 ml/min 04/16/21 10:10 BUN/Creatinine Ratio 13 % 04/16/21 10:10 Glucose 84 mg/dL (75-100) 04/16/21 10:10 POC Glucose 99 mg/dL (70-105) 04/15/21 01:38 Calcium 9.4 mg/dL (8.4-10.2) 04/16/21 10:10 Total Bilirubin 0.30 mg/dL (0.1-1.2) 04/16/21 10:10 AST 11 units/L (5-40) 04/16/21 10:10 ALT 7 units/L (7-56) 04/16/21 10:10 Alkaline Phosphatase 90 units/L (35-129) 04/16/21 10:10 Total Protein 7.1 g/dL (6.3-8.2) 04/16/21 10:10 Albumin 3.8 g/dL (3.9-5) L 04/16/21 10:10 Albumin/Globulin Ratio 1.2 % 04/16/21 10:10 Triglycerides 88 mg/dL (2-149) 04/16/21 10:10 Cholesterol 133 mg/dL (50-199) 04/16/21 10:10 LDL Cholesterol Direct 96 mg/dL (50-130) 04/16/21 10:10 HDL Cholesterol 40 mg/dL (40-59) 04/16/21 10:10 Cholesterol/HDL Ratio 3.32 % 04/16/21 10:10 TSH 0.844 mlU/mL (0.270-4.200) 04/16/21 10:10 Hepatitis A IgM Ab Non-reactive (NonReactive) 04/16/21 10:10 Hep Bs Antigen Non-reactive (Negative) 04/16/21 10:10 Hep B Core IgM Ab Non-reactive (NonReactive) 04/16/21 10:10 Hepatitis C Antibody Non-reactive (NonReactive) 04/16/21 10:10 Core Measure Documentation - Palliative Care Palliative Care/ Comfort Measures: Not Applicable - Core Measures Any of the following diagnoses?: none Exam - Constitutional Vitals: Temp Pulse Resp BP Pulse Ox 97.6 F 91 H 18 108/81 94 04/20/21 07:14 04/20/21 07:14 04/20/21 07:14 04/20/21 07:14 04/20/21 07:14 General appearance: Present: no acute distress - EENT Eyes: Present: PERRL, EOM intact ENT: hearing intact, clear oral mucosa - Neck Neck: Present: supple, normal ROM - Respiratory Respiratory effort: normal Plan Activity: advance as tolerated Weight Bearing Status: Weight Bear as Tolerated Care Plan Goals: Maintain good and stable mental health Plan of Treatment: The patient should be compliant with medications, not to use drugs, and not to drink alcohol. The patient understands that if suicidal ideas, homicidal ideas or any endangering feeling arise, the patient should seek assistance including, but not limited to crisis hotline, and emergency room. Assessment: Schizophrenia Follow up with: PRIMARY CARE, [Primary Care Provider] - 7 Days Prescriptions: traZODone [Desyrel] 50 mg PO QHS #30 tablet risperiDONE [RisperDAL] 3 mg PO QHS #30 tablet
[2021-04-20] MEDS: traZODone 50 MG TAB PO SCH (21:34)
[2021-04-20] MEDS: risperiDONE 3 MG TAB PO SCH (21:34)
[2021-04-21] MEDS: DIVALPROEX DR 250 MG TAB PO SCH ×2 (09:02→21:26)
[2021-04-21] MEDS: BENZTROPINE 0.5 MG TAB PO SCH ×2 (09:02→21:26)
--- NOTE | 2021-04-21 09:26 | Discharge Summary ---
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 The patient's mood, cognition, behavior, moral support are improved and stabilized. St the time of discharge, the patient had no endangering behavior and no debilitating adverse effects. The patient agreed on potential consequences of no treatment and gave informed consent. 04/16/2021: The patient was seen in the activity room eating breakfast, he reports mood as " alright." He states sleep and appetite as good. he denies any current suicidal /homicidal thoughts and denies hallucinations. Per nurse, the patient had a quiet night. No complain. No changes made today. 04/17/2021: The patient seen in the activity room awaiting breakfast. The patient presents with inappropriate laughter and responding to internal stimuli when asked he states " I just talk to myself." He reports doing well, states mood as "good" he denies any current suicidal/homicidal ideation and he denies hallucinations. Per nurse, "Last evening the patient stayed in the activity room. He held himself and rocked back and forth. He was observed talking to himself. He could stop talking to self and have a new conversation with staff. He denies si/hi/vh. His appetite is good and he is medication compliant. Overnight the patient rested quietly. He slept 8 hours." Changes Risperidone to 3mg po QHS and to start Invega Sustenna 234mg IM today. 0 Disposition: DC-01 TO HOME OR SELFCARE Time spent for discharge: 38 Allergies/Adverse Reactions: Allergies No Known Allergies Allergy (Verified 04/14/21 02:26) Vital Signs: Last Vital Signs Temp 97.8 F 04/21/21 07:17 Pulse 83 04/21/21 07:17 Resp 18 04/21/21 07:17 BP 120/79 04/21/21 07:17 Pulse Ox 96 04/21/21 07:17 Last Lab: Laboratory Last Values WBC 7.9 K/mm3 (4.5-11.0) 04/16/21 10:10 RBC 4.22 M/mm3 (3.65-5.03) 04/16/21 10:10 Hgb 12.4 gm/dl (11.8-15.2) 04/16/21 10:10 Hct 37.3 % (35.5-45.6) 04/16/21 10:10 MCV 88 fl (84-94) 04/16/21 10:10 MCH 29 pg (28-32) 04/16/21 10:10 MCHC 33 % (32-34) 04/16/21 10:10 RDW 15.0 % (13.2-15.2) 04/16/21 10:10 Plt Count 218 K/mm3 (140-440) 04/16/21 10:10 Lymph % (Auto) 20.4 % (13.4-35.0) 04/16/21 10:10 [place] % (Auto) 7.5 % (0.0-7.3) H 04/16/21 10:10 Eos % (Auto) 1.8 % (0.0-4.3) 04/16/21 10:10 Baso % (Auto) 0.4 % (0.0-1.8) 04/16/21 10:10 Lymph # (Auto) 1.6 K/mm3 (1.2-5.4) 04/16/21 10:10 [place] # (Auto) 0.6 K/mm3 (0.0-0.8) 04/16/21 10:10 Eos # (Auto) 0.1 K/mm3 (0.0-0.4) 04/16/21 10:10 Baso # (Auto) 0.0 K/mm3 (0.0-0.1) 04/16/21 10:10 Seg Neutrophils % 69.9 % (40.0-70.0) 04/16/21 10:10 Seg Neutrophils # 5.5 K/mm3 (1.8-7.7) 04/16/21 10:10 Sodium 139 mmol/L (137-145) 04/16/21 10:10 Potassium 4.3 mmol/L (3.6-5.0) 04/16/21 10:10 Chloride 104.2 mmol/L (98-107) 04/16/21 10:10 Carbon Dioxide 26 mmol/L (22-30) 04/16/21 10:10 Anion Gap 13 mmol/L 04/16/21 10:10 BUN 10 mg/dL (9-20) 04/16/21 10:10 Creatinine 0.8 mg/dL (0.8-1.3) 04/16/21 10:10 Estimated GFR > 60 ml/min 04/16/21 10:10 BUN/Creatinine Ratio 13 % 04/16/21 10:10 Glucose 84 mg/dL (75-100) 04/16/21 10:10 POC Glucose 99 mg/dL (70-105) 04/15/21 01:38 Calcium 9.4 mg/dL (8.4-10.2) 04/16/21 10:10 Total Bilirubin 0.30 mg/dL (0.1-1.2) 04/16/21 10:10 AST 11 units/L (5-40) 04/16/21 10:10 ALT 7 units/L (7-56) 04/16/21 10:10 Alkaline Phosphatase 90 units/L (35-129) 04/16/21 10:10 Total Protein 7.1 g/dL (6.3-8.2) 04/16/21 10:10 Albumin 3.8 g/dL (3.9-5) L 04/16/21 10:10 Albumin/Globulin Ratio 1.2 % 04/16/21 10:10 Triglycerides 88 mg/dL (2-149) 04/16/21 10:10 Cholesterol 133 mg/dL (50-199) 04/16/21 10:10 LDL Cholesterol Direct 96 mg/dL (50-130) 04/16/21 10:10 HDL Cholesterol 40 mg/dL (40-59) 04/16/21 10:10 Cholesterol/HDL Ratio 3.32 % 04/16/21 10:10 TSH 0.844 mlU/mL (0.270-4.200) 04/16/21 10:10 Hepatitis A IgM Ab Non-reactive (NonReactive) 04/16/21 10:10 Hep Bs Antigen Non-reactive (Negative) 04/16/21 10:10 Hep B Core IgM Ab Non-reactive (NonReactive) 04/16/21 10:10 Hepatitis C Antibody Non-reactive (NonReactive) 04/16/21 10:10 Core Measure Documentation - Palliative Care Palliative Care/ Comfort Measures: Not Applicable - Core Measures Any of the following diagnoses?: none Exam - Constitutional Vitals: Temp Pulse Resp BP Pulse Ox 97.8 F 83 18 120/79 96 04/21/21 07:17 04/21/21 07:17 04/21/21 07:17 04/21/21 07:17 04/21/21 07:17 General appearance: Present: no acute distress - EENT Eyes: Present: PERRL, EOM intact ENT: hearing intact, clear oral mucosa - Neck Neck: Present: supple, normal ROM Plan Activity: advance as tolerated Weight Bearing Status: Weight Bear as Tolerated Care Plan Goals: Maintain good and stable mental health Plan of Treatment: The patient should be compliant with medications, not to use drugs, and not to drink alcohol. The patient understands that if suicidal ideas, homicidal ideas or any endangering feeling arise, the patient should seek assistance including, but not limited to crisis hotline, and emergency room. Assessment: Schizophrenia Follow up with: PRIMARY CARE, [Primary Care Provider] - 7 Days Prescriptions: traZODone [Desyrel] 50 mg PO QHS #30 tablet risperiDONE [RisperDAL] 3 mg PO QHS #30 tablet
[2021-04-21] MEDS: traZODone 50 MG TAB PO SCH (21:26)
[2021-04-21] MEDS: risperiDONE 3 MG TAB PO SCH (21:26)
[2021-04-22 08:46] VITALS: BP 141/82
[2021-04-22] MEDS: BENZTROPINE 0.5 MG TAB PO SCH (09:51)
[2021-04-22] MEDS: DIVALPROEX DR 250 MG TAB PO SCH (09:51)
--- NOTE | 2021-04-22 09:52 | Discharge Summary ---
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 The patient's mood, cognition, behavior, moral support are improved and stabilized. St the time of discharge, the patient had no endangering behavior and no debilitating adverse effects. The patient agreed on potential consequences of no treatment and gave informed consent. 04/16/2021: The patient was seen in the activity room eating breakfast, he reports mood as " alright." He states sleep and appetite as good. he denies any current suicidal /homicidal thoughts and denies hallucinations. Per nurse, the patient had a quiet night. No complain. No changes made today. 04/17/2021: The patient seen in the activity room awaiting breakfast. The patient presents with inappropriate laughter and responding to internal stimuli when asked he states " I just talk to myself." He reports doing well, states mood as "good" he denies any current suicidal/homicidal ideation and he denies hallucinations. Per nurse, "Last evening the patient stayed in the activity room. He held himself and rocked back and forth. He was observed talking to himself. He could stop talking to self and have a new conversation with staff. He denies si/hi/vh. His appetite is good and he is medication compliant. Overnight the patient rested quietly. He slept 8 hours." Changes Risperidone to 3mg po QHS and to start Invega Sustenna 234mg IM today. Disposition: DC- TO HOME OR SELFCARE Time spent for discharge: 35 Allergies/Adverse Reactions: Allergies No Known Allergies Allergy (Verified 04/14/21 02:26) Vital Signs: Last Vital Signs Temp 98.4 F 04/22/21 07:59 Pulse 91 H 04/22/21 07:59 Resp 18 04/22/21 07:59 BP 141/82 04/22/21 07:59 Pulse Ox 97 04/22/21 07:59 Last Lab: Laboratory Last Values WBC 7.9 K/mm3 (4.5-11.0) 04/16/21 10:10 RBC 4.22 M/mm3 (3.65-5.03) 04/16/21 10:10 Hgb 12.4 gm/dl (11.8-15.2) 04/16/21 10:10 Hct 37.3 % (35.5-45.6) 04/16/21 10:10 MCV 88 fl (84-94) 04/16/21 10:10 MCH 29 pg (28-32) 04/16/21 10:10 MCHC 33 % (32-34) 04/16/21 10:10 RDW 15.0 % (13.2-15.2) 04/16/21 10:10 Plt Count 218 K/mm3 (140-440) 04/16/21 10:10 Lymph % (Auto) 20.4 % (13.4-35.0) 04/16/21 10:10 [place] % (Auto) 7.5 % (0.0-7.3) H 04/16/21 10:10 Eos % (Auto) 1.8 % (0.0-4.3) 04/16/21 10:10 Baso % (Auto) 0.4 % (0.0-1.8) 04/16/21 10:10 Lymph # (Auto) 1.6 K/mm3 (1.2-5.4) 04/16/21 10:10 [place] # (Auto) 0.6 K/mm3 (0.0-0.8) 04/16/21 10:10 Eos # (Auto) 0.1 K/mm3 (0.0-0.4) 04/16/21 10:10 Baso # (Auto) 0.0 K/mm3 (0.0-0.1) 04/16/21 10:10 Seg Neutrophils % 69.9 % (40.0-70.0) 04/16/21 10:10 Seg Neutrophils # 5.5 K/mm3 (1.8-7.7) 04/16/21 10:10 Sodium 139 mmol/L (137-145) 04/16/21 10:10 Potassium 4.3 mmol/L (3.6-5.0) 04/16/21 10:10 Chloride 104.2 mmol/L (98-107) 04/16/21 10:10 Carbon Dioxide 26 mmol/L (22-30) 04/16/21 10:10 Anion Gap 13 mmol/L 04/16/21 10:10 BUN 10 mg/dL (9-20) 04/16/21 10:10 Creatinine 0.8 mg/dL (0.8-1.3) 04/16/21 10:10 Estimated GFR > 60 ml/min 04/16/21 10:10 BUN/Creatinine Ratio 13 % 04/16/21 10:10 Glucose 84 mg/dL (75-100) 04/16/21 10:10 POC Glucose 99 mg/dL (70-105) 04/15/21 01:38 Calcium 9.4 mg/dL (8.4-10.2) 04/16/21 10:10 Total Bilirubin 0.30 mg/dL (0.1-1.2) 04/16/21 10:10 AST 11 units/L (5-40) 04/16/21 10:10 ALT 7 units/L (7-56) 04/16/21 10:10 Alkaline Phosphatase 90 units/L (35-129) 04/16/21 10:10 Total Protein 7.1 g/dL (6.3-8.2) 04/16/21 10:10 Albumin 3.8 g/dL (3.9-5) L 04/16/21 10:10 Albumin/Globulin Ratio 1.2 % 04/16/21 10:10 Triglycerides 88 mg/dL (2-149) 04/16/21 10:10 Cholesterol 133 mg/dL (50-199) 04/16/21 10:10 LDL Cholesterol Direct 96 mg/dL (50-130) 04/16/21 10:10 HDL Cholesterol 40 mg/dL (40-59) 04/16/21 10:10 Cholesterol/HDL Ratio 3.32 % 04/16/21 10:10 TSH 0.844 mlU/mL (0.270-4.200) 04/16/21 10:10 Hepatitis A IgM Ab Non-reactive (NonReactive) 04/16/21 10:10 Hep Bs Antigen Non-reactive (Negative) 04/16/21 10:10 Hep B Core IgM Ab Non-reactive (NonReactive) 04/16/21 10:10 Hepatitis C Antibody Non-reactive (NonReactive) 04/16/21 10:10 Core Measure Documentation - Palliative Care Palliative Care/ Comfort Measures: Not Applicable - Core Measures Any of the following diagnoses?: none Exam - Constitutional Vitals: Temp Pulse Resp BP Pulse Ox 98.4 F 91 H 18 141/82 97 04/22/21 07:59 04/22/21 07:59 04/22/21 07:59 04/22/21 07:59 04/22/21 07:59 General appearance: Present: no acute distress - EENT Eyes: Present: PERRL, EOM intact ENT: hearing intact, clear oral mucosa - Neck Neck: Present: normal ROM - Respiratory Respiratory effort: normal Plan Activity: advance as tolerated Weight Bearing Status: Weight Bear as Tolerated Care Plan Goals: Maintain good and stable mental health Plan of Treatment: The patient should be compliant with medications, not to use drugs, and not to drink alcohol. The patient understands that if suicidal ideas, homicidal ideas or any endangering feeling arise, the patient should seek assistance including, but not limited to crisis hotline, and emergency room. Assessment: Schizophrenia Follow up with: PRIMARY CARE, [Primary Care Provider] - 7 Days Prescriptions: traZODone [Desyrel] 50 mg PO QHS #30 tablet risperiDONE [RisperDAL] 3 mg PO QHS #30 tablet
== END 2021-04-22 15:00 | disposition home or self-care (01) | DRG 885 ==
LOC: 3A 15:31 → UNDOADMIN 15:31 → 5A 04-15 00:52
PROVIDERS: ADMIT Psychiatry & Neurology Psychiatry; ATTEND Psychiatry & Neurology Psychiatry
DX: F20.9 Schizophrenia, unspecified (principal); Z59.0 Homelessness; Z56.0 Unemployment, unspecified; Z79.899 Other long term (current) drug therapy; I10 Essential (primary) hypertension
CPT/HCPCS: 36415; 71045; 80048; 80053; 80061; 80074; 80164; 80307; 80320; 81001; 82962; 84443; 85025; 87086; G0378; G0480; J2426; U0003

== ENCOUNTER 2021-05-01 12:07 | Emergency (ER) | payer MEDICAID ==
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
[2021-05-01 12:43] VITALS: BP 119/81
[2021-05-01 12:54] LABS: Bilirubin,Urine NEG (Negative); Blood,Urine SM (Negative); Color,Urine Yellow (Yellow); Mucus,Urine 3+ /HPF
[2021-05-01 13:07] LABS: Amphetamine Screen,Urine PRESUMPTIVE NEGATIVE; Benzodiazepines Screen,Urine PRESUMPTIVE NEGATIVE; Cannabinoid Screen,Urine PRESUMPTIVE NEGATIVE; Cocaine Screen,Urine PRESUMPTIVE NEGATIVE; Methadone Screen,Urine PRESUMPTIVE NEGATIVE; Opiate Screen,Urine PRESUMPTIVE NEGATIVE
--- NOTE | 2021-05-01 13:16 | XRay Report ---
XR foot BILAT 3+V INDICATION / CLINICAL INFORMATION: foot pain. COMPARISON: None available. FINDINGS: BONES/JOINT(S): No acute fracture or subluxation. Midfoot arthrodesis in the right foot. 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 SOFT TISSUES: No significant abnormality. ADDITIONAL FINDINGS: None. Signer Name: Jayesh López MD Signed: 05/01/2021 1:12 PM Workstation Name: [email or web address]
[2021-05-01 14:47] LABS: Basophils # (Auto) 0.1 K/mm3 (0.0-0.1); Basophils % (Auto) 0.5 % (0.0-1.8); Eosinophils # (Auto) 0.2 K/mm3 (0.0-0.4); Eosinophils % (Auto) 1.8 % (0.0-4.3); Hematocrit 38.5 % (35.5-45.6); Hemoglobin 12.8 gm/dl (11.8-15.2); Lymphocytes # (Auto) 1.8 K/mm3 (1.2-5.4); Lymphocytes % (Auto) 16.7 % (13.4-35.0); Mean Corpuscular HGB Conc 33 % (32-34); Mean Corpuscular Volume 89 fl (84-94); Monocytes % (Auto) 9.3 % (0.0-7.3); Platelet Count 221 K/mm3 (140-440); Red Blood Count 4.33 M/mm3 (3.65-5.03); Red Cell Distribution Width 15.9 % (13.2-15.2)
[2021-05-01 15:06] LABS: BUN/Creatinine Ratio 11; Blood Urea Nitrogen 10 mg/dL (9-20); Calcium 9.4 mg/dL (8.4-10.2); Hemolysis Index 18
== END 2021-05-01 16:43 | disposition home or self-care (01) ==
LOC: ED 12:07
DX: F20.9 Schizophrenia, unspecified (principal); M79.672 Pain in left foot; M79.671 Pain in right foot; Z59.0 Homelessness; F31.9 Bipolar disorder, unspecified
CPT/HCPCS: 36415; 80048; 80164; 80307; 80320; 81001; 85025; 99284; 99285; G0480

== ENCOUNTER 2021-11-16 20:53 | Emergency (ER) | payer MEDICAID ==
[2021-11-16 21:59] LABS: BUN/Creatinine Ratio 15; Basophils # (Auto) 0.1 K/mm3 (0.0-0.1); Blood Urea Nitrogen 15 mg/dL (9-20); Calcium 9.1 mg/dL (8.4-10.2); Eosinophils # (Auto) 0.3 K/mm3 (0.0-0.4); Eosinophils % (Auto) 3.2 % (0.0-4.3); Hematocrit 41.3 % (35.5-45.6); Hemoglobin 13.4 gm/dl (11.8-15.2); Hemolysis Index 12; Lymphocytes # (Auto) 1.9 K/mm3 (1.2-5.4); Lymphocytes % (Auto) 22.2 % (13.4-35.0); Mean Corpuscular HGB Conc 32 % (32-34); Mean Corpuscular Volume 89 fl (84-94); Monocytes # (Auto) 0.7 K/mm3 (0.0-0.8); Monocytes % (Auto) 7.7 % (0.0-7.3); Platelet Count 207 K/mm3 (140-440); Red Blood Count 4.65 M/mm3 (3.65-5.03); Red Cell Distribution Width 17.2 % (13.2-15.2)
--- NOTE | 2021-11-16 22:26 | Emergency Department Report ---
HPI - General Chief Complaint: Psych Time Seen by Provider: 11/16/21 21:07 - HPI HPI: Room 15 The patient is a 51-year-old male present with a chief complaint of auditory hallucinations and suicidal ideation. Patient states she has a history of schizoaffective disorder and bipolar disorder and has been compliant with all of his medication. Patient states has had auditory hallucinations for the past 2 months and when asked what the voices are saying he states "they going to kill me." Patient also admits to suicidal ideation for the past 3 months. Patient denies any attempts at harming himself or having an active plan. Patient denies homicidal ideation or visual hallucinations ED Past Medical Hx - Past Medical History Hx Psychiatric Treatment: Yes (Schizophrenia, Bipolar disorder) - Surgical History Additional Surgical History: Left elbow surgery, right wrist surgery - Family History Family history: no significant - Social History Smoking Status: Never Smoker Substance Use Type: None (Denies illicit drug use) - Medications Home Medications: Home Medications Medication Instructions Recorded Confirmed Last Taken Type Divalproex Dr [DepaKOTE DR] 250 mg PO BID 11/17/21 11/17/21 11/17/21 10:00 History Potassium Chloride [K-Dur] 40 meq PO BID 11/17/21 11/17/21 11/17/21 10:00 History risperiDONE [RisperDAL] 1 mg PO BID 11/17/21 11/17/21 11/17/21 10:00 History traZODone [Desyrel] 50 mg PO QHS 11/17/21 11/17/21 Unknown History ED Review of Systems ROS: Stated complaint: MH EVAL/HEARING VOICES Other details as noted in HPI Constitutional: no symptoms reported Eyes: denies: eye pain ENT: denies: throat pain Respiratory: no symptoms reported Cardiovascular: denies: chest pain Endocrine: no symptoms reported Gastrointestinal: denies: abdominal pain Genitourinary: denies: dysuria Musculoskeletal: denies: back pain Neurological: denies: headache Psychiatric: auditory hallucinations, suicidal thoughts. denies: visual hallucinations, homicidal thoughts Physical Exam - Physical Exam Vital Signs: Vital Signs 11/16/21 21:07 Temperature 97.9 F Pulse Rate 84 Respiratory 16 Rate Blood Pressure 136/87 O2 Sat by Pulse 100 Oximetry Physical Exam: GENERAL: The patient is well-developed well-nourished male lying on stretcher not appearing to be in acute distress. [] HEENT: Normocephalic. Atraumatic. Extraocular motions are intact. Patient has moist mucous membranes. NECK: Supple. Trachea midline CHEST/LUNGS: Clear to auscultation. There is no respiratory distress noted. HEART/CARDIOVASCULAR: Regular. There is no tachycardia. There is no gallop rub or murmur. ABDOMEN: Abdomen is soft, nontender. Patient has normal bowel sounds. There is no abdominal distention. SKIN: There is no rash. There is no edema. There is no diaphoresis. NEURO: The patient is awake, alert, and oriented. The patient is cooperative. The patient has no focal neurologic deficits. The patient has normal speech. GCS 15 MUSCULOSKELETAL: There is no evidence of acute injury. ED Course Vital Signs 11/16/21 21:07 Temperature 97.9 F Pulse Rate 84 Respiratory 16 Rate Blood Pressure 136/87 O2 Sat by Pulse 100 Oximetry ED Medical Decision Making - Lab Data Result diagrams: 11/16/21 21:17 11/16/21 21:17 - Differential Diagnosis Suicidal ideation, schizophrenia Critical care attestation.: If time is entered above; I have spent that time in minutes in the direct care of this critically ill patient, excluding procedure time. ED Disposition Clinical Impression: Schizophrenia, Suicidal ideation Disposition: [address] [place] [address] HOSPITAL Is pt being admited?: No Does the pt Need Aspirin: No Condition: Stable Additional Instructions: Please continue current outpatient psychiatric medications. Please follow-up with an outpatient primary care doctor within the next month. Please follow-up with your psychiatrist today as scheduled. Please return to the emergency room right away with new pain, worsened pain, migration of pain, projectile vomiting, change in mental status, confusion, inability tolerate liquid feeds, new, worsened or different symptoms not present on the initial emergency room evaluation Referrals: BLANCO DAWKINS MD [Primary Care Provider] - 3-5 Days
[2021-11-16] MEDS ORDERED: POTASSIUM CHLORIDE ER 20 MEQ TAB PO ONE (22:41)
[2021-11-17 00:27] LABS: Bacteria,Urine 1+ /HPF (Negative); Mucus,Urine 1+ /HPF
[2021-11-17 00:28] LABS: Bilirubin,Urine NEG (Negative); Blood,Urine SM (Negative); Color,Urine Yellow (Yellow); Protein,Urine <15 mg/dL mg/dL (Negative); Urobilinogen,Urine < 2.0 mg/dL (<2.0)
[2021-11-17 00:32] LABS: Amphetamine Screen,Urine PRESUMPTIVE NEGATIVE; Benzodiazepines Screen,Urine PRESUMPTIVE NEGATIVE; Cannabinoid Screen,Urine PRESUMPTIVE NEGATIVE; Cocaine Screen,Urine PRESUMPTIVE NEGATIVE; Methadone Screen,Urine PRESUMPTIVE NEGATIVE; Opiate Screen,Urine PRESUMPTIVE NEGATIVE
--- NOTE | 2021-11-17 10:26 | Consultation ---
History of Present Illness - Reason for Consult Consult date: 11/17/21 Reason for consult: SI/hallucinations - History of Present Psychiatric Illness The patient was seen today. He says he is hearing voices, and has been hearing them for about 6 months. The patient says "but they got bad yesterday." He says the voices are telling him they are going to kill him. He endorses SI without a plan. Diagnoses: Schizophrenia and Bipolar Suicide attempts or Self-harm behavior: Yes Prior psychiatric hospitalizations: Multiple Substance Abuse history: Denies Previous psychiatric medications tried: could not recall Outpatient treatment: unknown PAST MEDICAL HISTORY: unknown Family Psychiatric History: None reported or documented SOCIAL HISTORY Marital Status: Single Living Arrangements: Homeless Employment Status: unemployed Access to guns/weapons: Denies Education: 11th grade History of Abuse: none reported Legal History: none reported REVIEW OF SYSTEMS Constitutional: Negative for weight loss ENT: Negative for stridor Respiratory: Negative for cough or hemoptysis All other systems reviewed and are negative MENTAL STATUS EXAMINATION General Appearance and Behavior: Age appropriate, good hygiene, wearing appropriate clothes, sleeping, cooperative Cooperation: Participating/engaged Psychomotor Behavior: Tremors Mood: "not good" Affect and affective range: congruent with mood Thought Process: illogical Thought Content: hallucinations Speech: Normal volume, Regular rate and rhythm, Suicidal Ideation: Yes Homicidal Ideation: Denies Hallucinations: Auditory Delusions: None elicited Impulse Control: impaired Insight and Judgment: poor insight and judgment, Memory: abnormal Attention: Normal Orientation: Alert, oriented Assessment and Plan (1)Schizophrenia F20.9 Current Visit: Yes Status: Acute Treatment Plan [address] 250mg po BID Trazodone 50mg po qhs Risperidone 1mg po BID Sitter: Per primary Medical: per primary Disposition: Recommend acute psychiatric inpatient treatment Will follow. Thanks Case staffed with Dr. Smith Medications and Allergies Allergies Allergy/AdvReac Type Severity Reaction Status Date / Time No Known Allergies Allergy Verified 05/01/21 12:50 Home Medications Medication Instructions Recorded Confirmed Last Taken Type Benztropine [Cogentin] 0.5 mg PO BID #30 tablet 12/10/19 04/15/[address] [Depakote Dr] 500 mg PO BID #60 tablet 12/10/19 04/15/21 Unknown Rx fluPHENAZine HCl [Prolixin] 5 mg PO BID #30 tablet 12/10/19 04/15/21 Unknown Rx risperiDONE [RisperDAL] 3 mg PO QHS #30 tablet 04/18/21 Unknown Rx traZODone [Desyrel] 50 mg PO QHS #30 tablet 04/18/21 Unknown Rx Mental Status Exam - Vital signs Last Vital Signs Temp 97.9 F 11/16/21 21:07 Pulse 84 11/16/21 21:07 Resp 16 11/16/21 21:07 BP 136/87 11/16/21 21:07 Pulse Ox 99 11/16/21 22:06 Results Result Diagrams: 11/16/21 21:17 11/16/21 21:17 Abnormal lab results 11/16/21 11/16/21 11/16/21 Range/Units 21:17 21:17 21:17 RDW 17.2 H (13.2-15.2) % [place] % (Auto) 7.7 H (0.0-7.3) % Potassium 3.4 L (3.6-5.0) mmol/L Glucose 108 H (75-100) mg/dL Salicylates < 0.3 L (2.8-20.0) mg/dL Acetaminophen (10.0-30.0) ug/mL Valproic Acid < 2.8 L (50-100) ug/mL 11/16/21 Range/Units 21:17 RDW (13.2-15.2) % [place] % (Auto) (0.0-7.3) % Potassium (3.6-5.0) mmol/L Glucose (75-100) mg/dL Salicylates (2.8-20.0) mg/dL Acetaminophen 5.0 L (10.0-30.0) ug/mL Valproic Acid (50-100) ug/mL All other labs normal.
[2021-11-17] MEDS ORDERED: risperiDONE 1 MG TAB PO SCH (11:00)
[2021-11-17] MEDS ORDERED: DIVALPROEX DR 250 MG TAB PO SCH (11:00)
[2021-11-17 11:07] VITALS: BP 168/105
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
[2021-11-17] MEDS ORDERED: POTASSIUM CHLORIDE ER 20 MEQ TAB PO SCH (22:00)
[2021-11-17] MEDS ORDERED: traZODone 50 MG TAB PO SCH (22:00)
== END 2021-11-17 14:48 ==
LOC: ED 20:53
DX: R45.851 Suicidal ideations (principal); F20.9 Schizophrenia, unspecified; F31.9 Bipolar disorder, unspecified; Z20.822 Contact with and (suspected) exposure to COVID-19
CPT/HCPCS: 36415; 80048; 80164; 80307; 81001; 85025; 99284; U0003; 80320; G0480

== ENCOUNTER 2021-11-17 12:44 | Inpatient (IN) | payer MEDICAID ==
--- NOTE | 2021-11-18 08:53 | History and Physical Report ---
GP History & Physical - History of Present Illness Date of admission: 11/17/21 Date of Examination: 11/18/21 Reason for Admission: Danger to self, Failure of Outpatient Treatment, Severe anxiety/depression History of Present Illness: The patient was first evaluated in the ER. He endorsed being suicidal and hearing voices telling they were going to kill him. The patient is seen today, he is rocking back and forth at a fast pace. He appears anxious, but denies feeling so. He denies feeling suicidal initially. I ask him what happened to make him better since yesterday. He replied "I still hear the voices telling me they gone kill me." Diagnoses: Schizophrenia and Bipolar Suicide attempts or Self-harm behavior: Yes Prior psychiatric hospitalizations: Multiple Substance Abuse history: Denies Previous psychiatric medications tried: could not recall Outpatient treatment: unknown PAST MEDICAL HISTORY: unknown Family Psychiatric History: None reported or documented SOCIAL HISTORY Marital Status: Single Living Arrangements: Homeless Employment Status: unemployed Access to guns/weapons: Denies Education: 11th grade History of Abuse: none reported Legal History: none reported REVIEW OF SYSTEMS Constitutional: Negative for weight loss ENT: Negative for stridor Respiratory: Negative for cough or hemoptysis All other systems reviewed and are negative MENTAL STATUS EXAMINATION General Appearance and Behavior: Age appropriate, good hygiene, wearing appropriate clothes, sleeping, cooperative Cooperation: Participating/engaged Psychomotor Behavior: Tremors Mood: "not good" Affect and affective range: congruent with mood Thought Process: illogical Thought Content: hallucinations Speech: Normal volume, Regular rate and rhythm, Suicidal Ideation: Yes Homicidal Ideation: Denies Hallucinations: Auditory Delusions: None elicited Impulse Control: impaired Insight and Judgment: poor insight and judgment, Memory: abnormal Attention: Normal Orientation: Alert, oriented Assessment and Plan (1)Schizophrenia F20.9 Current Visit: Yes Status: Acute Treatment Plan Patient admitted for inpatient psychiatric evaluation, medication adjustment and close monitoring The patient's behavior, mood, sleep and appetite will be closely monitored. Patient enrolled in individual and group therapeutic sessions and encouraged to attend. Patient provided with a safe and structured environment. Patient's physical health needs will be addressed by the Hospitalist. Hospitalist Consulted Labs including CBC, CMP, Lipid profile and Hemoglobin A1C levels ordered for baseline reference Social Assessment will be completed and the Occupational Therapy Technician will work with patient and family to ensure a suitable and safe disposition Medication adjustment will be made as clinically indicated Continue meds Usual Wellness Temple/Preservation: - Start Trazodone 50 mg po QHS & 50 mg po QHS PRN between 10 PM & 2 AM for insomnia - Start Melatonin 5 mg po QHS to promote circadian rhythm The patient agreed on the treatment plan, understood the risk, benefit, alternative treatment, potential consequence of no treatment, and gave informed consent. Estimated days: Post hospital care: primary care provider, psychiatric provider Case staffed with Dr. Smith Legal Status: Voluntary Reaction to Hospitalization: Accepting Medications and Allergies Allergies Allergy/AdvReac Type Severity Reaction Status Date / Time No Known Allergies Allergy Verified 05/01/21 12:50 Home Medications Medication Instructions Recorded Confirmed Last Taken Type Divalproex Dr [DepaKOTE DR] 250 mg PO BID 11/17/21 11/17/21 11/17/21 10:00 History Potassium Chloride [K-Dur] 40 meq PO BID 11/17/21 11/17/21 11/17/21 10:00 History risperiDONE [RisperDAL] 1 mg PO BID 11/17/21 11/17/21 11/17/21 10:00 History traZODone [Desyrel] 50 mg PO QHS 11/17/21 11/17/21 Unknown History Active Meds: Active Medications Divalproex Sodium (Divalproex Dr 250 Mg Tab) 250 mg PO BID [facility] Risperidone (Risperidone 1 Mg Tab) 1 mg PO BID [facility] Trazodone HCl (Trazodone 50 Mg Tab) 50 mg PO QHS [facility] Results - Results Labs/Vitals: Laboratory Last Values POC Glucose 111 mg/dL (70-105) H 11/18/21 07:36 Last Vital Signs Temp 98.2 F 11/17/21 18:12 Pulse 80 11/17/21 18:12 Resp 18 11/17/21 18:12 BP 126/82 11/17/21 18:12 Pulse Ox 98 11/17/21 18:12 Physical Examination - Constitutional Vitals: Vital Signs Temp Pulse Resp BP Pulse Ox 98.2 F 80 18 126/82 98 11/17/21 18:12 11/17/21 18:12 11/17/21 18:12 11/17/21 18:12 11/17/21 18:12 Temperature -Last 24 Hours Temperature 98.2 F Mental Status Exam - Vital signs Last Vital Signs Temp 98.2 F 11/17/21 18:12 Pulse 80 11/17/21 18:12 Resp 18 11/17/21 18:12 BP 126/82 11/17/21 18:12 Pulse Ox 98 11/17/21 18:12 Physician Certification - Certification Statement Physician Certification Statement: This is an acknowledgement statement that MARIANGEL MARTINEZ is a 51 year old M who requires inpatient psychiatric admission for treatment which could reasonably be expected to improve the patient's condition for Estimated period of time patient will need to remain in the hospital: [ ] Plan for post-hospital care: [ ]
[2021-11-18] MEDS: DIVALPROEX DR 250 MG TAB PO SCH ×3 (09:52→21:51)
[2021-11-18] MEDS: risperiDONE 1 MG TAB PO SCH ×3 (09:52→21:51)
--- NOTE | 2021-11-18 11:28 | Consultation ---
History of Present Illness - Reason for Consult Consult date: 11/18/21 Medical Management Requesting physician: PATTIE OTT - History of Present Illness 51 YO Male with HTN, Bipolar Disorder, Schizophrenia admitted to [facility] for psychiatric stabilization. Consult placed with Dr. Ott for medical management. Patient seen and evaluated in the recreation room. Patient denies fever, chills, chest pain, palpitation, productive cough, skin rash, recent contact, known exposure to COVID-19. Patient resting comfortably. No reported nursing events. Past History Past Medical History: hypertension Past Surgical History: No surgical history, Other (reviewed) Social history: single. denies: smoking, alcohol abuse, prescription drug abuse Family history: hypertension Medications and Allergies Allergies Allergy/AdvReac Type Severity Reaction Status Date / Time No Known Allergies Allergy Verified 05/01/21 12:50 Home Medications Medication Instructions Recorded Confirmed Last Taken Type Divalproex Dr [DepaKOTE DR] 250 mg PO BID 11/17/21 11/17/21 11/17/21 10:00 History Potassium Chloride [K-Dur] 40 meq PO BID 11/17/21 11/17/21 11/17/21 10:00 History risperiDONE [RisperDAL] 1 mg PO BID 11/17/21 11/17/21 11/17/21 10:00 History traZODone [Desyrel] 50 mg PO QHS 11/17/21 11/17/21 Unknown History Active Meds: Active Medications Divalproex Sodium (Divalproex Dr 250 Mg Tab) 250 mg PO BID [facility] Last Admin: 11/18/21 09:57 Dose: 250 mg Risperidone (Risperidone 1 Mg Tab) 1 mg PO BID [facility] Last Admin: 11/18/21 09:58 Dose: 1 mg Trazodone HCl (Trazodone 50 Mg Tab) 50 mg PO QHS [facility] Review of Systems Constitutional: no weight loss, no weight gain, no chills, no night sweats Ears, nose, mouth and throat: no ear pain, no decreased hearing, no nasal congestion, no nasal discharge Cardiovascular: no chest pain, no palpitations, no edema, no syncope Respiratory: no cough, no cough with sputum, no hemoptysis Gastrointestinal: no nausea, no vomiting, no constipation, no hematemesis Genitourinary Male: no hematuria, no flank pain, no discharge, no urinary frequency, no nocturia, no incontinence Rectal: no pain, no incontinence, no bleeding Musculoskeletal: no neck stiffness, no neck pain, no shooting arm pain, no low back pain, no shooting leg pain Integumentary: no rash, no pruritis, no sores, no jaundice Neurological: no head injury, no paralysis, no weakness, no numbness, no tingling, no seizures, no tremors Psychiatric: no anxiety, no memory loss, no hypersomnia, no change in appetite Endocrine: no cold intolerance, no polyphagia, no excessive thirst, no polydipsia Hematologic/Lymphatic: no easy bruising, no easy bleeding Allergic/Immunologic: no urticaria, no allergic rhinitis Exam - Constitutional Vitals: Temp Pulse Resp BP Pulse Ox 98.2 F 80 18 126/82 98 11/17/21 18:12 11/17/21 18:12 11/17/21 18:12 11/17/21 18:12 11/17/21 18:12 General appearance: Present: no acute distress - EENT Eyes: Present: PERRL ENT: hearing intact, clear oral mucosa - Neck Neck: Present: supple, normal ROM - Respiratory Respiratory effort: normal Respiratory: bilateral: CTA - Cardiovascular Heart Sounds: Present: S1 & S2. Absent: rub, click - Extremities Extremities: pulses symmetrical, No edema Peripheral Pulses: within normal limits - Abdominal General gastrointestinal: Present: soft, non-tender, non-distended, normal bowel sounds Male genitourinary: Present: normal - Integumentary Integumentary: Present: clear, warm, dry - Musculoskeletal Musculoskeletal: gait normal, strength equal bilaterally - Psychiatric Psychiatric: cooperative - Neurologic Neurologic: CNII-XII intact, moves all extremities Results - Labs Labs: Abnormal lab results 11/18/21 Range/Units 07:36 POC Glucose 111 H (70-105) mg/dL Assessment and Plan - Patient Problems (1) Bipolar disorder Current Visit: No Status: Acute (2) Hypertension Current Visit: No Status: Acute Qualifiers: Hypertension type: primary hypertension Qualified Code(s): I10 - Essential (primary) hypertension (3) Schizophrenia Current Visit: No Status: Acute Qualifiers: (4) Advance care planning Current Visit: Yes Status: Acute
[2021-11-18] MEDS: traZODone 50 MG TAB PO SCH (21:51)
[2021-11-19 00:38] LABS: Basophils % (Auto) 0.5 % (0.0-1.8); Eosinophils # (Auto) 0.3 K/mm3 (0.0-0.4); Eosinophils % (Auto) 4.1 % (0.0-4.3); Hematocrit 37.7 % (35.5-45.6); Hemoglobin 12.2 gm/dl (11.8-15.2); Lymphocytes # (Auto) 2.2 K/mm3 (1.2-5.4); Lymphocytes % (Auto) 28.8 % (13.4-35.0); Mean Corpuscular HGB Conc 32 % (32-34); Mean Corpuscular Volume 90 fl (84-94); Monocytes # (Auto) 0.6 K/mm3 (0.0-0.8); Monocytes % (Auto) 8.2 % (0.0-7.3); Platelet Count 198 K/mm3 (140-440); Red Blood Count 4.18 M/mm3 (3.65-5.03)
[2021-11-19 02:30] LABS: Alanine Aminotransferase 26 units/L (7-56); Albumin 3.7 g/dL (3.9-5); BUN/Creatinine Ratio 21; Blood Urea Nitrogen 17 mg/dL (9-20); Calcium 9.1 mg/dL (8.4-10.2); Chol/HDL Ratio 3.19 %; HDL Cholesterol 46 mg/dL (40-59); Hemolysis Index 6; LDL Cholesterol,Direct 83 mg/dL (50-130)
[2021-11-19] MEDS: risperiDONE 1 MG TAB PO SCH ×4 (09:13→20:50)
[2021-11-19] MEDS: DIVALPROEX DR 250 MG TAB PO SCH ×3 (09:13→21:07)
--- NOTE | 2021-11-19 10:29 | Progress Note ---
Subjective Date of service: 11/19/21 Principal diagnosis: Schizophrenia Subjective Comment: The patient was seen today. He appears anxious. He is rocking back and forth quickly. He is talking out loud to himself. although he denies hearing or seeing things when asked. He denies SI/HI REVIEW OF SYSTEMS Constitutional: Negative for weight loss ENT: Negative for stridor Respiratory: Negative for cough or hemoptysis All other systems reviewed and are negative MENTAL STATUS EXAMINATION General Appearance and Behavior: Age appropriate, good hygiene, wearing appropriate clothes, sleeping, cooperative Cooperation: Participating/engaged Psychomotor Behavior: Tremors Mood: "not good" Affect and affective range: congruent with mood Thought Process: illogical Thought Content: hallucinations Speech: Normal volume, Regular rate and rhythm, Suicidal Ideation: Yes Homicidal Ideation: Denies Hallucinations: Auditory Delusions: None elicited Impulse Control: impaired Insight and Judgment: poor insight and judgment, Memory: abnormal Attention: Normal Orientation: Alert, oriented Assessment and Plan (1)Schizophrenia F20.9 Current Visit: Yes Status: Acute Treatment Plan Patient admitted for inpatient psychiatric evaluation, medication adjustment and close monitoring The patient's behavior, mood, sleep and appetite will be closely monitored. Patient enrolled in individual and group therapeutic sessions and encouraged to attend. Patient provided with a safe and structured environment. Patient's physical health needs will be addressed by the Hospitalist. Hospitalist Consulted Labs including CBC, CMP, Lipid profile and Hemoglobin A1C levels ordered for baseline reference Social Assessment will be completed and the Broker Associate will work with patient and family to ensure a suitable and safe disposition Medication adjustment will be made as clinically indicated Increased Risperidone 1mg po TID Start Vistaril 50mg po BID Usual Wellness Confucianism/Preservation: - Start Trazodone 50 mg po QHS & 50 mg po QHS PRN between 10 PM & 2 AM for insomnia - Start Melatonin 5 mg po QHS to promote circadian rhythm The patient agreed on the treatment plan, understood the risk, benefit, alternative treatment, potential consequence of no treatment, and gave informed consent. Estimated days: Post hospital care: primary care provider, psychiatric provider Case staffed with Dr. Smith Medications and Allergies Allergies Allergy/AdvReac Type Severity Reaction Status Date / Time No Known Allergies Allergy Verified 05/01/21 12:50 Home Medications Medication Instructions Recorded Confirmed Last Taken Type Divalproex [Stephen RUIZ] 250 mg PO BID 11/17/21 11/17/21 11/17/21 10:00 History Potassium Chloride [K-Dur] 40 meq PO BID 11/17/21 11/17/21 11/17/21 10:00 History risperiDONE [RisperDAL] 1 mg PO BID 11/17/21 11/17/21 11/17/21 10:00 History traZODone [Desyrel] 50 mg PO QHS 11/17/21 11/17/21 Unknown History Active Meds: Active Medications Divalproex Sodium (Divalproex Dr 250 Mg Tab) 250 mg PO BID [facility] Last Admin: 11/19/21 09:13 Dose: 250 mg Risperidone (Risperidone 1 Mg Tab) 1 mg PO BID [facility] Last Admin: 11/19/21 09:13 Dose: 1 mg Trazodone HCl (Trazodone 50 Mg Tab) 50 mg PO QHS [facility] Last Admin: 11/18/21 21:51 Dose: 50 mg Results - Results Labs/Vitals: Laboratory Last Values WBC 7.6 K/mm3 (4.5-11.0) 11/19/21 00:10 RBC 4.18 M/mm3 (3.65-5.03) 11/19/21 00:10 Hgb 12.2 gm/dl (11.8-15.2) 11/19/21 00:10 Hct 37.7 % (35.5-45.6) 11/19/21 00:10 MCV 90 fl (84-94) 11/19/21 00:10 MCH 29 pg (28-32) 11/19/21 00:10 MCHC 32 % (32-34) 11/19/21 00:10 RDW 17.0 % (13.2-15.2) H 11/19/21 00:10 Plt Count 198 K/mm3 (140-440) 11/19/21 00:10 Lymph % (Auto) 28.8 % (13.4-35.0) 11/19/21 00:10 [place] % (Auto) 8.2 % (0.0-7.3) H 11/19/21 00:10 Eos % (Auto) 4.1 % (0.0-4.3) 11/19/21 00:10 Baso % (Auto) 0.5 % (0.0-1.8) 11/19/21 00:10 Lymph # (Auto) 2.2 K/mm3 (1.2-5.4) 11/19/21 00:10 [place] # (Auto) 0.6 K/mm3 (0.0-0.8) 11/19/21 00:10 Eos # (Auto) 0.3 K/mm3 (0.0-0.4) 11/19/21 00:10 Baso # (Auto) 0.0 K/mm3 (0.0-0.1) 11/19/21 00:10 Seg Neutrophils % 58.4 % (40.0-70.0) 11/19/21 00:10 Seg Neutrophils # 4.4 K/mm3 (1.8-7.7) 11/19/21 00:10 Sodium 142 mmol/L (137-145) 11/19/21 00:10 Potassium 3.8 mmol/L (3.6-5.0) 11/19/21 00:10 Chloride 105.8 mmol/L (98-107) 11/19/21 00:10 Carbon Dioxide 22 mmol/L (22-30) 11/19/21 00:10 Anion Gap 18 mmol/L 11/19/21 00:10 BUN 17 mg/dL (9-20) 11/19/21 00:10 Creatinine 0.8 mg/dL (0.8-1.3) 11/19/21 00:10 Estimated GFR > 60 ml/min 11/19/21 00:10 BUN/Creatinine Ratio 21 % 11/19/21 00:10 Glucose 94 mg/dL (75-100) 11/19/21 00:10 POC Glucose 111 mg/dL (70-105) H 11/18/21 07:36 Hemoglobin A1c 4.7 % (4-6) 11/19/21 00:10 Calcium 9.1 mg/dL (8.4-10.2) 11/19/21 00:10 Total Bilirubin 0.20 mg/dL (0.1-1.2) 11/19/21 00:10 AST 19 units/L (5-40) 11/19/21 00:10 ALT 26 units/L (7-56) 11/19/21 00:10 Alkaline Phosphatase 71 units/L (35-129) 11/19/21 00:10 Total Protein 6.8 g/dL (6.3-8.2) 11/19/21 00:10 Albumin 3.7 g/dL (3.9-5) L 11/19/21 00:10 Albumin/Globulin Ratio 1.2 % 11/19/21 00:10 Triglycerides 103 mg/dL (2-149) 11/19/21 00:10 Cholesterol 147 mg/dL (50-199) 11/19/21 00:10 LDL Cholesterol Direct 83 mg/dL (50-130) 11/19/21 00:10 HDL Cholesterol 46 mg/dL (40-59) 11/19/21 00:10 Cholesterol/HDL Ratio 3.19 % 11/19/21 00:10 TSH 2.660 mlU/mL (0.270-4.200) 11/19/21 00:10 Last Vital Signs Temp 97.5 F L 11/18/21 20:52 Pulse 83 11/18/21 20:52 Resp 16 11/18/21 20:52 BP 138/93 11/18/21 20:52 Pulse Ox 98 11/18/21 20:52
[2021-11-19] MEDS: traZODone 50 MG TAB PO SCH (21:08)
[2021-11-20] MEDS: risperiDONE 1 MG TAB PO SCH ×3 (07:46→21:03)
[2021-11-20] MEDS: DIVALPROEX DR 250 MG TAB PO SCH ×2 (09:12→21:03)
--- NOTE | 2021-11-20 09:15 | Progress Note ---
Subjective Date of service: 11/20/21 Principal diagnosis: Schizophrenia Subjective Comment: The patient was seen today. He is not as anxious today. He says he's feeling a little better. He denies SI/HI or hallucinations, but he is talking out loud to himself. REVIEW OF SYSTEMS Constitutional: Negative for weight loss ENT: Negative for stridor Respiratory: Negative for cough or hemoptysis All other systems reviewed and are negative MENTAL STATUS EXAMINATION General Appearance and Behavior: Age appropriate, good hygiene, wearing appropriate clothes, sleeping, cooperative Cooperation: Participating/engaged Psychomotor Behavior: Tremors Mood: a little better Affect and affective range: congruent with mood Thought Process: illogical Thought Content: hallucinations Speech: Normal volume, Regular rate and rhythm, Suicidal Ideation: Yes Homicidal Ideation: Denies Hallucinations: Auditory Delusions: None elicited Impulse Control: impaired Insight and Judgment: poor insight and judgment, Memory: abnormal Attention: Normal Orientation: Alert, oriented Assessment and Plan (1)Schizophrenia F20.9 Current Visit: Yes Status: Acute Treatment Plan Patient admitted for inpatient psychiatric evaluation, medication adjustment and close monitoring The patient's behavior, mood, sleep and appetite will be closely monitored. Patient enrolled in individual and group therapeutic sessions and encouraged to attend. Patient provided with a safe and structured environment. Patient's physical health needs will be addressed by the Hospitalist. Hospitalist Consulted Labs including CBC, CMP, Lipid profile and Hemoglobin A1C levels ordered for baseline reference Social Assessment will be completed and the Basic Combatant Swimmer will work with patient and family to ensure a suitable and safe disposition Medication adjustment will be made as clinically indicated Increased Risperidone 1mg po TID yesterday Start Vistaril 50mg po BID yesterday No changes today Usual Wellness Mandaeism/Preservation: - Start Trazodone 50 mg po QHS & 50 mg po QHS PRN between 10 PM & 2 AM for insomnia - Start Melatonin 5 mg po QHS to promote circadian rhythm The patient agreed on the treatment plan, understood the risk, benefit, alternative treatment, potential consequence of no treatment, and gave informed consent. Estimated days: Post hospital care: primary care provider, psychiatric provider Case staffed with Dr. Smith Medications and Allergies Allergies Allergy/AdvReac Type Severity Reaction Status Date / Time No Known Allergies Allergy Verified 05/01/21 12:50 Home Medications Medication Instructions Recorded Confirmed Last Taken Type Divalproex [DepaKOTE DR] 250 mg PO BID 11/17/21 11/17/21 11/17/21 10:00 History Potassium Chloride [K-Dur] 40 meq PO BID 11/17/21 11/17/21 11/17/21 10:00 History risperiDONE [RisperDAL] 1 mg PO BID 11/17/21 11/17/21 11/17/21 10:00 History traZODone [Desyrel] 50 mg PO QHS 11/17/21 11/17/21 Unknown History Active Meds: Active Medications Divalproex Sodium (Divalproex Dr 250 Mg Tab) 250 mg PO BID [facility] Last Admin: 11/19/21 21:07 Dose: 250 mg Hydroxyzine Pamoate (Hydroxyzine Pamoate 50 Mg Cap) 50 mg PO BID [facility] Last Admin: 11/19/21 21:08 Dose: 50 mg Risperidone (Risperidone 1 Mg Tab) 1 mg PO TID [facility] Last Admin: 11/20/21 07:46 Dose: 1 mg Trazodone HCl (Trazodone 50 Mg Tab) 50 mg PO QHS [facility] Last Admin: 11/19/21 21:08 Dose: 50 mg Results - Results Labs/Vitals: Laboratory Last Values WBC 7.6 K/mm3 (4.5-11.0) 11/19/21 00:10 RBC 4.18 M/mm3 (3.65-5.03) 11/19/21 00:10 Hgb 12.2 gm/dl (11.8-15.2) 11/19/21 00:10 Hct 37.7 % (35.5-45.6) 11/19/21 00:10 MCV 90 fl (84-94) 11/19/21 00:10 MCH 29 pg (28-32) 11/19/21 00:10 MCHC 32 % (32-34) 11/19/21 00:10 RDW 17.0 % (13.2-15.2) H 11/19/21 00:10 Plt Count 198 K/mm3 (140-440) 11/19/21 00:10 Lymph % (Auto) 28.8 % (13.4-35.0) 11/19/21 00:10 [place] % (Auto) 8.2 % (0.0-7.3) H 11/19/21 00:10 Eos % (Auto) 4.1 % (0.0-4.3) 11/19/21 00:10 Baso % (Auto) 0.5 % (0.0-1.8) 11/19/21 00:10 Lymph # (Auto) 2.2 K/mm3 (1.2-5.4) 11/19/21 00:10 [place] # (Auto) 0.6 K/mm3 (0.0-0.8) 11/19/21 00:10 Eos # (Auto) 0.3 K/mm3 (0.0-0.4) 11/19/21 00:10 Baso # (Auto) 0.0 K/mm3 (0.0-0.1) 11/19/21 00:10 Seg Neutrophils % 58.4 % (40.0-70.0) 11/19/21 00:10 Seg Neutrophils # 4.4 K/mm3 (1.8-7.7) 11/19/21 00:10 Sodium 142 mmol/L (137-145) 11/19/21 00:10 Potassium 3.8 mmol/L (3.6-5.0) 11/19/21 00:10 Chloride 105.8 mmol/L (98-107) 11/19/21 00:10 Carbon Dioxide 22 mmol/L (22-30) 11/19/21 00:10 Anion Gap 18 mmol/L 11/19/21 00:10 BUN 17 mg/dL (9-20) 11/19/21 00:10 Creatinine 0.8 mg/dL (0.8-1.3) 11/19/21 00:10 Estimated GFR > 60 ml/min 11/19/21 00:10 BUN/Creatinine Ratio 21 % 11/19/21 00:10 Glucose 94 mg/dL (75-100) 11/19/21 00:10 POC Glucose 111 mg/dL (70-105) H 11/18/21 07:36 Hemoglobin A1c 4.7 % (4-6) 11/19/21 00:10 Calcium 9.1 mg/dL (8.4-10.2) 11/19/21 00:10 Total Bilirubin 0.20 mg/dL (0.1-1.2) 11/19/21 00:10 AST 19 units/L (5-40) 11/19/21 00:10 ALT 26 units/L (7-56) 11/19/21 00:10 Alkaline Phosphatase 71 units/L (35-129) 11/19/21 00:10 Total Protein 6.8 g/dL (6.3-8.2) 11/19/21 00:10 Albumin 3.7 g/dL (3.9-5) L 11/19/21 00:10 Albumin/Globulin Ratio 1.2 % 11/19/21 00:10 Triglycerides 103 mg/dL (2-149) 11/19/21 00:10 Cholesterol 147 mg/dL (50-199) 11/19/21 00:10 LDL Cholesterol Direct 83 mg/dL (50-130) 11/19/21 00:10 HDL Cholesterol 46 mg/dL (40-59) 11/19/21 00:10 Cholesterol/HDL Ratio 3.19 % 11/19/21 00:10 TSH 2.660 mlU/mL (0.270-4.200) 11/19/21 00:10 Last Vital Signs Temp 97.5 F L 11/18/21 20:52 Pulse 83 11/18/21 20:52 Resp 16 11/18/21 20:52 BP 138/93 11/18/21 20:52 Pulse Ox 98 11/18/21 20:52
[2021-11-20] MEDS: traZODone 50 MG TAB PO SCH (21:00)
--- NOTE | 2021-11-21 09:28 | Discharge Summary ---
Providers - Providers Date of Admission: 11/17/21 17:32 Date of discharge: 11/21/21 Attending physician: PATTIE OTT MD 11/17/21 12:58 Consult to Physician [CONS] Routine Comment: Consulting Provider: BRIAN RUFF Physician Instructions: Reason For Exam: manage medical conditions Primary care physician: BLANCO DAWKINS Hospitalization Reason for admission: psychosis Admitting Diagnosis: F20.9 - SCHIZOPHRENIA, UNSPECIFIED Condition: Stable Hospital course: The patient was provided inpatient psychiatric treatment with safe and supportive environment, group/individual therapy, psychiatric medication, medication adjustment, adverse effect monitor, medical evaluation, medical treatment, social service assessment, social support meeting, placement assessment and psycho-education. The patients mood, cognition, behavior, motivation, compliance to treatment and appreciation on family/social support are improved and stabilized. At the time of discharge, the patient had no suicidal ideas, no homicidal ideas, no aggressive thoughts, no endangering behavior and no debilitating adverse effects. The patient agreed on the treatment plan, understood the risk, benefit, alternative treatment, potential consequence of no treatment, and gave informed consent. Disposition: 01 HOME / SELF CARE / HOMELESS Time spent for discharge: 35 Allergies/Adverse Reactions: Allergies No Known Allergies Allergy (Verified 05/01/21 12:50) Vital Signs: Last Vital Signs Temp 98.5 F 11/20/21 19:43 Pulse 106 H 11/20/21 19:43 Resp 17 11/20/21 19:43 BP 135/87 11/20/21 19:43 Pulse Ox 95 11/20/21 19:43 Last Lab: Laboratory Last Values WBC 7.6 K/mm3 (4.5-11.0) 11/19/21 00:10 RBC 4.18 M/mm3 (3.65-5.03) 11/19/21 00:10 Hgb 12.2 gm/dl (11.8-15.2) 11/19/21 00:10 Hct 37.7 % (35.5-45.6) 11/19/21 00:10 MCV 90 fl (84-94) 11/19/21 00:10 MCH 29 pg (28-32) 11/19/21 00:10 MCHC 32 % (32-34) 11/19/21 00:10 RDW 17.0 % (13.2-15.2) H 11/19/21 00:10 Plt Count 198 K/mm3 (140-440) 11/19/21 00:10 Lymph % (Auto) 28.8 % (13.4-35.0) 11/19/21 00:10 [place] % (Auto) 8.2 % (0.0-7.3) H 11/19/21 00:10 Eos % (Auto) 4.1 % (0.0-4.3) 11/19/21 00:10 Baso % (Auto) 0.5 % (0.0-1.8) 11/19/21 00:10 Lymph # (Auto) 2.2 K/mm3 (1.2-5.4) 11/19/21 00:10 [place] # (Auto) 0.6 K/mm3 (0.0-0.8) 11/19/21 00:10 Eos # (Auto) 0.3 K/mm3 (0.0-0.4) 11/19/21 00:10 Baso # (Auto) 0.0 K/mm3 (0.0-0.1) 11/19/21 00:10 Seg Neutrophils % 58.4 % (40.0-70.0) 11/19/21 00:10 Seg Neutrophils # 4.4 K/mm3 (1.8-7.7) 11/19/21 00:10 Sodium 142 mmol/L (137-145) 11/19/21 00:10 Potassium 3.8 mmol/L (3.6-5.0) 11/19/21 00:10 Chloride 105.8 mmol/L (98-107) 11/19/21 00:10 Carbon Dioxide 22 mmol/L (22-30) 11/19/21 00:10 Anion Gap 18 mmol/L 11/19/21 00:10 BUN 17 mg/dL (9-20) 11/19/21 00:10 Creatinine 0.8 mg/dL (0.8-1.3) 11/19/21 00:10 Estimated GFR > 60 ml/min 11/19/21 00:10 BUN/Creatinine Ratio 21 % 11/19/21 00:10 Glucose 94 mg/dL (75-100) 11/19/21 00:10 POC Glucose 111 mg/dL (70-105) H 11/18/21 07:36 Hemoglobin A1c 4.7 % (4-6) 11/19/21 00:10 Calcium 9.1 mg/dL (8.4-10.2) 11/19/21 00:10 Total Bilirubin 0.20 mg/dL (0.1-1.2) 11/19/21 00:10 AST 19 units/L (5-40) 11/19/21 00:10 ALT 26 units/L (7-56) 11/19/21 00:10 Alkaline Phosphatase 71 units/L (35-129) 11/19/21 00:10 Total Protein 6.8 g/dL (6.3-8.2) 11/19/21 00:10 Albumin 3.7 g/dL (3.9-5) L 11/19/21 00:10 Albumin/Globulin Ratio 1.2 % 11/19/21 00:10 Triglycerides 103 mg/dL (2-149) 11/19/21 00:10 Cholesterol 147 mg/dL (50-199) 11/19/21 00:10 LDL Cholesterol Direct 83 mg/dL (50-130) 11/19/21 00:10 HDL Cholesterol 46 mg/dL (40-59) 11/19/21 00:10 Cholesterol/HDL Ratio 3.19 % 11/19/21 00:10 TSH 2.660 mlU/mL (0.270-4.200) 11/19/21 00:10 Core Measure Documentation - Palliative Care Palliative Care/ Comfort Measures: Not Applicable - Core Measures Any of the following diagnoses?: none Exam - Constitutional Vitals: Temp Pulse Resp BP Pulse Ox 98.5 F 106 H 17 135/87 95 11/20/21 19:43 11/20/21 19:43 11/20/21 19:43 11/20/21 19:43 11/20/21 19:43 General appearance: Present: no acute distress - EENT Eyes: Present: PERRL, EOM intact ENT: hearing intact, clear oral mucosa - Neck Neck: Present: supple, normal ROM - Respiratory Respiratory effort: normal Plan Activity: advance as tolerated Weight Bearing Status: Weight Bear as Tolerated Care Plan Goals: Maintain good and stable mental health Plan of Treatment: The patient should be compliant with medications, not to use drugs and not to drink alcohol.The patient understands that if suicidal ideas, homicidal ideas, or any endangering thoughts/behavior arise, they should immediately seek for emergent assistance including but not limited to crisis hot line and emergency room. Follow up with outpatient Psychiatrist and PCP within 7 - 14 days of discharge. Assessment: Schizophrenia Follow up with: BLANCO DAWKINS MD [Primary Care Provider] - 7 Days Prescriptions: traZODone [Desyrel] 50 mg PO QHS #[address] [Depakote Dr] 250 mg PO BID #60 tablet risperiDONE [RisperDAL] 1 mg PO TID #90 tablet hydrOXYzine PAMOATE [Vistaril] 50 mg PO BID #60 capsule
[2021-11-21] MEDS: risperiDONE 1 MG TAB PO SCH ×3 (12:23→20:06)
[2021-11-21] MEDS: DIVALPROEX DR 250 MG TAB PO SCH ×2 (12:23→21:01)
[2021-11-21 20:49] VITALS: BP 151/101
[2021-11-21] MEDS: traZODone 50 MG TAB PO SCH (21:01)
== END 2021-11-21 21:10 | disposition home or self-care (01) | DRG 885 ==
LOC: UNDOADMIN 12:44 → 3A 12:44 → OBSVTOIN 17:32 → 5A 17:32
PROVIDERS: ADMIT Psychiatry & Neurology Psychiatry; ATTEND Psychiatry & Neurology Psychiatry
DX: F20.9 Schizophrenia, unspecified (principal); F31.9 Bipolar disorder, unspecified; I10 Essential (primary) hypertension; Z82.49 Family history of ischemic heart disease and other diseases of the circulatory system
CPT/HCPCS: 36415; 80048; 80053; 80061; 80164; 80307; 80320; 81001; 82962; 83036; 84443; 85025; 99284; G0378; G0480; Q0177; U0003

== ENCOUNTER 2022-01-25 01:24 | Emergency (ER) | payer MEDICAID ==
[2022-01-25 02:51] LABS: Basophils # (Auto) 0.1 K/mm3 (0.0-0.1); Basophils % (Auto) 1.5 % (0.0-1.8); Eosinophils # (Auto) 0.4 K/mm3 (0.0-0.4); Eosinophils % (Auto) 4.4 % (0.0-4.3); Hematocrit 42.7 % (35.5-45.6); Hemoglobin 13.8 gm/dl (11.8-15.2); Lymphocytes # (Auto) 2.2 K/mm3 (1.2-5.4); Lymphocytes % (Auto) 23.2 % (13.4-35.0); Mean Corpuscular HGB Conc 32 % (32-34); Mean Corpuscular Volume 88 fl (84-94); Monocytes # (Auto) 0.8 K/mm3 (0.0-0.8); Monocytes % (Auto) 8.4 % (0.0-7.3); Platelet Count 183 K/mm3 (140-440); Red Blood Count 4.87 M/mm3 (3.65-5.03); Red Cell Distribution Width 15.6 % (13.2-15.2)
[2022-01-25 02:54] LABS: Alanine Aminotransferase 22 units/L (7-56); Albumin 4.6 g/dL (3.9-5); BUN/Creatinine Ratio 21; Blood Urea Nitrogen 17 mg/dL (9-20); Calcium 9.4 mg/dL (8.4-10.2); Hemolysis Index 6
--- NOTE | 2022-01-25 04:47 | Emergency Department Report ---
ED Psych HPI - General Chief Complaint: Psych Stated Complaint: MH EVAL/HEARING VOICES Time Seen by Provider: 01/25/22 01:48 Source: patient, EMS Mode of arrival: Ambulatory - History of Present Illness Initial Comments: Patient is a 51-year-old male with history of schizophrenia presenting to ED with complaint of hearing voices. Denies suicidal or homicidal ideations. - Related Data Home Medications Medication Instructions Recorded Confirmed Last Taken Potassium Chloride [K-Dur] 40 meq PO BID 11/17/21 11/17/21 11/17/21 10:00 Previous Rx's Medication Instructions Recorded Last Taken Type Divalproex Dr [Depakote Dr] 250 mg PO BID #60 tablet 11/21/21 Unknown Rx hydrOXYzine PAMOATE [Vistaril] 50 mg PO BID #60 capsule 11/21/21 Unknown Rx risperiDONE [RisperDAL] 1 mg PO TID #90 tablet 11/21/21 Unknown Rx traZODone [Desyrel] 50 mg PO QHS #30 tablet 11/21/21 Unknown Rx Allergies Allergy/AdvReac Type Severity Reaction Status Date / Time No Known Allergies Allergy Verified 05/01/21 12:50 ED Review of Systems ROS: Stated complaint: MH EVAL/HEARING VOICES Other details as noted in HPI Constitutional: denies: chills, fever Respiratory: denies: cough, shortness of breath, wheezing Cardiovascular: denies: chest pain, palpitations Gastrointestinal: denies: abdominal pain, nausea, diarrhea Musculoskeletal: denies: back pain, joint swelling, arthralgia Skin: denies: rash, lesions Neurological: denies: headache, weakness, paresthesias Psychiatric: auditory hallucinations ED Past Medical Hx - Past Medical History Previous Medical History?: Yes Hx Congestive Heart Failure: No Hx Diabetes: No Hx Renal Disease: No Hx Arthritis: No Hx Seizures: No Hx Psychiatric Treatment: Yes (Schizophrenia, Bipolar disorder) Hx Asthma: No Hx COPD: No Hx Dementia: No - Surgical History Past Surgical History?: Yes Hx Cholecystectomy: No Hx Appendectomy: No Additional Surgical History: Left elbow surgery, right wrist surgery - Social History Smoking Status: Never Smoker Substance Use Type: None (Denies illicit drug use) - Medications Home Medications: Home Medications Medication Instructions Recorded Confirmed Last Taken Type Potassium Chloride [K-Dur] 40 meq PO BID 11/17/21 11/17/21 11/17/21 10:[address] [Depakote Dr] 250 mg PO BID #60 tablet 11/21/21 Unknown Rx hydrOXYzine PAMOATE [Vistaril] 50 mg PO BID #60 capsule 11/21/21 Unknown Rx risperiDONE [RisperDAL] 1 mg PO TID #90 tablet 11/21/21 Unknown Rx traZODone [Desyrel] 50 mg PO QHS #30 tablet 11/21/21 Unknown Rx ED Physical Exam - General Limitations: No Limitations General appearance: alert, in no apparent distress - Head Head exam: Present: atraumatic, normocephalic - Neck Neck exam: Present: normal inspection - Respiratory Respiratory exam: Present: normal lung sounds bilaterally. Absent: respiratory distress - Cardiovascular Cardiovascular Exam: Present: regular rate, normal rhythm. Absent: systolic murmur, diastolic murmur, rubs, gallop - GI/Abdominal GI/Abdominal exam: Present: soft. Absent: distended, tenderness - Rectal Rectal exam: Present: deferred - Neurological Exam Neurological exam: Present: alert, oriented X3 - Psychiatric Psychiatric exam: Present: normal affect, normal mood - Skin Skin exam: Present: warm, dry, intact, normal color ED Course Vital Signs 01/25/22 01:43 Temperature 97.9 F Pulse Rate 86 Respiratory 18 Rate Blood Pressure 160/100 [Right] O2 Sat by Pulse 98 Oximetry ED Medical Decision Making - Lab Data Result diagrams: 01/25/22 02:04 01/25/22 02:04 - Medical Decision Making CBC, CMP, serum acetaminophen and salicylate unremarkable. UDS and mental health assessment pending. Critical care attestation.: If time is entered above; I have spent that time in minutes in the direct care of this critically ill patient, excluding procedure time. ED Disposition Clinical Impression: Auditory hallucinations Disposition: 30 STILL A PATIENT Is pt being admited?: No Condition: Stable
[2022-01-25 09:14] LABS: Bilirubin,Urine NEG (Negative); Blood,Urine SM (Negative); Color,Urine Yellow (Yellow); Mucus,Urine FEW /HPF; Protein,Urine <15 mg/dL mg/dL (Negative); Urobilinogen,Urine < 2.0 mg/dL (<2.0)
[2022-01-25 09:42] LABS: Amphetamine Screen,Urine Negative; Benzodiazepines Screen,Urine Negative; Cannabinoid Screen,Urine Negative; Cocaine Screen,Urine Negative; Methadone Screen,Urine Negative; Opiate Screen,Urine Negative
--- NOTE | 2022-01-25 10:04 | Consultation ---
History of Present Illness - Reason for Consult Consult date: 01/25/22 Reason for consult: hallucinatoins - History of Present Psychiatric Illness HPI: Patient is a 51-year-old male with history of schizophrenia presenting to ED with complaint of hearing voices. Denies suicidal or homicidal ideations. The patient was seen today. He is asleep, but easily arouses. He is known to me from previous visits. The patient says he came to the hospital because his feet hurt and he's hearing voices. The patient says the voices say they want to kill him sometime. When asked was he hearing the voices now, he first says no, then says "yea." He denies SI/HI. He also denies any illicit drug use. He says he has a history of schizophrenia. The patient says he takes cogentin and depakote. He says he has been taking them, but denies being on his antipsychotic. Will give the patient new scripts for meds, and have him follow up with outpatient psych. Diagnoses: Schizophrenia and Bipolar Suicide attempts or Self-harm behavior: Yes Prior psychiatric hospitalizations: Multiple Substance Abuse history: Denies Previous psychiatric medications tried: depakote, cogentin Outpatient treatment: yes PAST MEDICAL HISTORY: unknown Family Psychiatric History: None reported or documented SOCIAL HISTORY Marital Status: Single Living Arrangements: Homeless Employment Status: unemployed Access to guns/weapons: Denies Education: 11th grade History of Abuse: none reported Legal History: none reported REVIEW OF SYSTEMS Constitutional: Negative for weight loss ENT: Negative for stridor Respiratory: Negative for cough or hemoptysis All other systems reviewed and are negative MENTAL STATUS EXAMINATION General Appearance and Behavior: Age appropriate, good hygiene, wearing appropriate clothes, sleeping, cooperative Cooperation: Participating/engaged Psychomotor Behavior: normal Mood: okay Affect and affective range: congruent with mood Thought Process: illogical Thought Content: hallucinations Speech: Normal volume, Regular rate and rhythm, Suicidal Ideation: Denies Homicidal Ideation: Denies Hallucinations: Auditory Delusions: None elicited Impulse Control: impaired Insight and Judgment: Limited insight and judgment, Memory: Limited Attention: Normal Orientation: Alert, oriented Assessment and Plan (1)Schizophrenia F20.9 Treatment Plan Risperidone 1mg po TID Depakote DR 250mg po BID Cogentin 0.5mg po BID Medical: per primary Sitter: Defer to primary Disposition: Do not recommend acute psychiatric inpatient treatment Will sign off. Thanks. Case staffed with Dr. Smith. Medications and Allergies Allergies Allergy/AdvReac Type Severity Reaction Status Date / Time No Known Allergies Allergy Verified 05/01/21 12:50 Home Medications Medication Instructions Recorded Confirmed Last Taken Type Potassium Chloride [K-Dur] 40 meq PO BID 11/17/21 11/17/21 11/17/21 10:00 History hydrOXYzine PAMOATE [Vistaril] 50 mg PO BID #60 capsule 11/21/21 Unknown Rx traZODone [Desyrel] 50 mg PO QHS #30 tablet 11/21/21 Unknown Rx Benztropine [Cogentin] 0.5 mg PO BID #60 tab 01/25/[address] [Depakote Dr] 250 mg PO BID #60 tablet 01/25/22 Unknown Rx risperiDONE [RisperDAL] 1 mg PO TID #90 tablet 01/25/22 Unknown Rx Mental Status Exam - Vital signs Last Vital Signs Temp 97.9 F 01/25/22 01:43 Pulse 86 01/25/22 01:43 Resp 18 01/25/22 01:43 BP 160/100 01/25/22 01:43 Pulse Ox 98 01/25/22 01:43 Results Result Diagrams: 01/25/22 02:04 01/25/22 02:04 Abnormal lab results 01/25/22 01/25/22 01/25/22 Range/Units 02:04 02:04 02:04 RDW 15.6 H (13.2-15.2) % [place] % (Auto) 8.4 H (0.0-7.3) % Eos % (Auto) 4.4 H (0.0-4.3) % Glucose 101 H (75-100) mg/dL Salicylates < 0.3 L (2.8-20.0) mg/dL Acetaminophen (10.0-30.0) ug/mL 01/25/22 Range/Units 02:04 RDW (13.2-15.2) % [place] % (Auto) (0.0-7.3) % Eos % (Auto) (0.0-4.3) % Glucose (75-100) mg/dL Salicylates (2.8-20.0) mg/dL Acetaminophen 5.0 L (10.0-30.0) ug/mL All other labs normal.
--- NOTE | 2022-01-25 11:48 | Event Note ---
Date: 01/25/22 Patient seen and examined this morning. Patient was busy rocking is upper body on the couch. Patient denies any suicide or homicidal ideation. Patient was seen this morning around upon by the psychiatrist and deemed to be stable enough to discharge home on Depakote, Risperdal, and Cogentin. All paperwork done for patient to be discharged at this point.
[2022-01-25 14:11] VITALS: BP 155/94
== END 2022-01-25 14:14 | disposition home or self-care (01) ==
LOC: ED 01:24
DX: R44.0 Auditory hallucinations (principal); F31.9 Bipolar disorder, unspecified; Z98.890 Other specified postprocedural states
CPT/HCPCS: 36415; 80053; 80307; 80320; 81001; 84443; 85025; 99284; G0480